=== PATIENT | female | born 1975 | race Caucasian/White ===

== ENCOUNTER 2023-08-02 01:19 | Inpatient (IN) | payer MEDICARE, SELFPAY ==
[2023-08-02] MEDS: traZODone HCL 50 MG TABLET PO (02:03)
[2023-08-02 02:05] VITALS: BP 136/87; PULSE 135; RESP 18; TEMP 36.6; O2SAT 95
[2023-08-02 02:28] VITALS: BMI 26.8
--- NOTE | 2023-08-02 05:45 | PC.NURSE ---
Pt is a 48 yo F with reported hx of Bipolar 2 and Schizoaffective disorder. Admitted from [facility] after attempting suicide by overdosing on the remainder of her daily medications; which included olanzapine, valproic acid, lisinopril, and hydroxyzine. Patient developed encephalopathy and was intubated, had intermittent extreme changes in B/P which have since regulated. Skin assessment shows multiple large bruises to bilateral upper arms, some bruising to upper legs, and indelible ink hopson to bilateral dorsal feet. Pt arrives to unit voluntarily, calm and cooperative, denies SI/HI/AVH at this time. States that she frequently feels paranoid that people are talking about her even when she tries to practice rationalization techniques. Believes her meds need to be adjusted before returning home where she lives with her .
[2023-08-02 08:00] VITALS: BP 146/81; PULSE 97; RESP 18; TEMP 36.8; O2SAT 100
[2023-08-02 08:41] LABS: Cholesterol 191 mg/dL (<200); HDL Cholesterol 29 mg/dL (>40); LDL Cholesterol Calculated 120 mg/dL (<100); Triglycerides 212 mg/dL (<150)
[2023-08-02 09:07] LABS: Estimated Average Glucose 126 mg/dL
--- NOTE | 2023-08-02 09:48 | HO.PSYADMNOT ---
HPI Date of Service: 08/02/23 Chief Complaint: Schizoaffective Disorder Sources of Information: patient interviewed, chart reviewed and crisis/core team assessment reviewed HPI Subjective Notes: Haq Warning and Conditional Voluntary Narrative: pt is a 47 yo female with hx of Bipolar disorder who presents following intentional overdose in suicide attempt requiring ICU admission at [facility] following aspiration pneumonia, now cleared, on PO antibiotics and transferred to [place] [address]. Pt reports she was doing overall okay, though still with depression, until about 2 weeks ago. She remained taking medications regularly and does not know why she entered into an intense depression. Patient has been attending [facility] however found herself sleeping all day afterwards, feeling like a burden to others, becoming hopeless, having no motivation, not attending to ADLs, and experiencing increasingly extreme despair. Patient did not hear actual auditory hallucinations but started having paranoid delusional thoughts that everybody knew that she had a mental illness, including strangers in the community, people driving by; patient would overhear other people talking and misinterpret it, such as hearing a man yelling, thinking that he was yelling at her. Patient said she would have suicidal thoughts but tried to distract herself by doing yoga; she does not know why she did not tell staff at [facility] or her ... But also says I wanted a way out.. Patient went into the basement while her was upstairs; she poured out all her pills into a bowl and started just consuming. Her came downstairs, realized what she would done and drove her to [facility] where she received charcoal and had to get intubated, resulting in aspiration pneumonia. Patient reports that Depakote has helped in the past and she wants to continue on it; she has not sure about the effectiveness of her other medication. Patient says her last manic episode was probably around March during which time she was hypomanic, irritable. Patient denies any alcohol or drug use; denies any history of trauma. Patient is glad that she is alive. Past Psychiatric History: Past psychiatric hospitalizations, Last hospitalization was this past March 2023 where she was restarted on Depakote and newly started on Zyprexa (2002, 2005, 2007, 2017) Hx of suicide attempt in 2018 Med trials: Latuda: Thinks it was helpful but caused akathisia Keyport: Helpful but started affecting kidneys and thyroid Vraylar: Wondering if she had auditory hallucinations on this Zyprexa, started this past 04/19/2023; not sure if it is helpful Seroquel started in 10/17/2022, causing vivid nightmares, sleepwalking Medical Evaluation Reviewed: Yes Concern for C diff; labs pending [facility] Medical History (Updated 08/02/23 @ 12:57 by Jonah Griggs MD) Bipolar I disorder with rapid cycling Hypertension Bipolar 1 disorder Schizoaffective disorder Family History: Maternal great grandmother: Schizophrenia Father: dementia Social History: lives at home with supportive of 21 years Graduated College with BA Substance History: denies Trauma History: denies Diagnostics Vital Signs (24Hr): Vital Signs - 24 hr 08/02/23 02:05 Temperature 97.8 F Pulse Rate 135 H Respiratory Rate 18 Blood Pressure 136/87 Pulse Oximetry 95 Oxygen Delivery Method Room Air BMI result Body Mass Index 26.8 Labs Labs: Laboratory Results - last 48 hr 08/02/23 08:06 Estimat Average Glucose 126 Hemoglobin A1c % 6.0 Triglycerides 212 H Cholesterol 191 LDL Cholesterol, Calc 120 H HDL Cholesterol 29 L Meds/Allergies Meds Home Medications ?Medication ?Instructions ?Recorded ?Confirmed ?Type acetaminophen 325 mg tablet 975 mg PO Q6H PRN Pain 08/02/23 08/02/23 History (Tylenol) amoxicillin 875 mg-potassium 1 tab PO BID 08/02/23 08/02/23 History clavulanate 125 mg tablet artificial tears solution eye drops 2 drp ophthalmic (eye) Q4-5H 08/02/23 08/02/23 History bisacodyl 10 mg rectal suppository 10 mg CA DAILY PRN Anxiety 08/02/23 08/02/23 History dextrose 40 % oral gel (Glucose 15 g PO Q20M PRN Hypoglycemia 08/02/23 08/02/23 History Gel) dextrose 40 % oral gel (Glucose 30 g PO Q20M PRN Hypoglycemia 08/02/23 08/02/23 History Gel) enoxaparin 40 mg/0.4 mL 40 mg subcut DAILY 08/02/23 08/02/23 History subcutaneous syringe (Lovenox) hydroxyzine pamoate 25 mg capsule 25 mg PO TID PRN Anxiety 08/02/23 08/02/23 History (Vistaril) lorazepam 0.5 mg tablet (Ativan) 0.5 mg PO BID PRN Anxiety 08/02/23 08/02/23 History melatonin 3 mg tablet 6 mg PO BEDTIME PRN Sleep 08/02/23 08/02/23 History sennosides 8.6 mg tablet (senna) 8.6 mg PO DAILY 08/02/23 08/02/23 History Allergies Allergies Allergy/AdvReac Type Severity Reaction Status Date / Time No Known Allergies Allergy Verified 08/02/23 00:26 Mental Status Exam Mental Status Exam Narrative: Pt is alert and oriented; behavior is cooperative, friendly and calm; patient is not in distress; dressed in casual attire, hair dyed red, with adequate hygiene; mood is described as depressed and affect congruent, downcast; eye contact appropriate; Speech is hoarse from intubation; otherwise normal rate, volume and prosody and not pressured; psychomotor retardation present; thought process is organized and goal directed; Thought content is on tx for depression; otherwise pertinent to relevant topics and without any delusional content, paranoid ideations or grandiosity; denies any SI/HI. There is no evidence of perceptual disturbance. Patients insight and judgment impaired, but improving. Assessment & Plan Assessment & Plan (1) Bipolar I disorder with rapid cycling: Status: Acute Code(s): F31.9 - Bipolar disorder, unspecified (2) Aspiration pneumonia: Status: Acute Code(s): J69.0 - Pneumonitis due to inhalation of food and vomit Plan pt is a 47 yo female with hx of Bipolar disorder who presents following intentional overdose in suicide attempt requiring ICU admission at [facility] following aspiration pneumonia, now cleared, on PO antibiotics and transferred to [place] [address]. Pt reports she was doing overall okay, though still with depression, until about 2 weeks ago. She remained taking medications regularly and does not know why she entered into an intense depression. Patient has been attending [facility] however found herself sleeping all day afterwards, feeling like a burden to others, becoming hopeless, having no motivation, not attending to ADLs, and experiencing increasingly extreme despair. Patient did not hear actual auditory hallucinations but started having paranoid delusional thoughts that everybody knew that she had a mental illness, including strangers in the community, people driving by; patient would overhear other people talking and misinterpret it, such as hearing a man yelling, thinking that he was yelling at her. Patient said she would have suicidal thoughts but tried to distract herself by doing yoga; she does not know why she did not tell staff at [facility] or her ... But also says I wanted a way out.. Patient went into the basement while her was upstairs; she poured out all her pills into a bowl and started just consuming. Her came downstairs, realized what she would done and drove her to [facility] where she received charcoal and had to get intubated, resulting in aspiration pneumonia. Patient reports that Depakote has helped in the past and she wants to continue on it; she has not sure about the effectiveness of her other medication. Patient says her last manic episode was probably around March during which time she was hypomanic, irritable. Patient denies any alcohol or drug use; denies any history of trauma. Patient is glad that she is alive. Formulation/clinical reasoning: Seems that Depakote and maybe Zyprexa (this past March 2023 she was restarted on Depakote and newly started on Zyprexa) seem to help prevent seda however do not seem to be treating her depression adequately. Patient has had several past medication trials that have not worked. Will consider Wellbutrin, retrial of Vraylar, or possibly Lamictal... ECT is an option; could also consider magnesium oxide -patient currently being treated for aspiration pneumonia on Augmentin; having diarrhea and C diff labs pending PLAN: CV q15min Restart Depakote ER 1000mg (at qhs since it makes pt tired) Continue Zyprexa 15mg qhs Continue Augmentin BID for total of 7 days; however if C diff positive will need to re-evaluate this antibiotic Patient educated on: diagnosis, medication risk/benefits and medical condition Informed Consent: understands Reason for continued inpatient stay Substantial Risk for: rapid decompensation Statement Statement: I have reviewed the history and physical and performed a pertinent examination on my patient. No changes have occurred unless specified. If the History and Physical was not performed prior to admission, the Hospitalist's service will be consulted for completing the admission physical. Time Spent With Patient Time: Total time managing care of this patient today ____ minutes.
--- NOTE | 2023-08-02 10:52 | P.CONHOSP_ITS ---
History of Present Illness Data of Consult Service Date: 08/02/23 Requesting physician: Jonah Griggs Primary Care Provider: Unknown Physician HPI Reason for consult: medical H&P 47-year-old female with a past medical history of hypertension, schizoaffective disorder, bipolar disorder?admitted to psychiatry with consult placed to hospitalist service for medical H&P. She was admitted to [facility] after arriving to the ED obtunded following an intentional overdose of zyprexa, depakote, asa, lisinopril, hydroxyzine in unclear amounts. Utox was positive for benzos only. Valproic acid level was significantly elevated at 120. Poison control was contacted and she recevied activated charcoal via ng tube, calcium gluc, and mag. She required emergent dialysis due to her valproic acid levels which did trend down and normalized on 07/28. She was also intubated in the ED for airway protection and was extubated on 07/29. Unfortuantely developed aspiration pneumonia with fevers and leukocytosis and was started on ctx on 07/26. She was transitioned to augmentin on day of discharge recommended for a 7 day course. She was sen by [employer] recommending dysphagia diet puree (NDD1) and nectar thick liquids. The patient currently denies dysphagia but remains hoarse. Apparently ate oatmeal and applesauce this morning. Was on regular diet. Will update. Her lisinopril was held during hospitalization with fluctuating bp following OD but was resumed prior to discharge. She is currently reporting multiple episodes of diarrhea and still reports charcoal in her stool. Denies tarry stool or BRBPR. Platelets 326 on discharge with stable H/H. Renal function and lytes wnl on discharge. Review of Systems Review of Systems: General: No fevers, malaise, unintentional weight loss HEENT: No blurred vision, diplopia. No sore throat, nasal congestion, rhinorrhea, sinus pain, ear pain. +hoarse voice Cardiovascular: No chest pain, palpitations, or leg edema Respiratory: No shortness of breath, wheezing, cough GI: +diarrhea. No abdominal pain, nausea, vomiting, constipation, melena, hematochezia : No dysuria, hematuria, increased urinary frequency, decreased urinary output MSK: No myalgia, back pain Neuro: No headaches, weakness, paresthesias Skin: No rashes or lesions PMFSH Medical History Hypertension Bipolar 1 disorder Schizoaffective disorder Social History Household Members: Spouse Housing: House Do you presently have visiting nurse or other home services: No Patient Tobacco Use Status: Never used Tobacco e-Cigarette/Vaping Use: Never Used Use of substances other than those prescribed or required for medical reasons: No Currently Displaying Signs/Symptoms of Drug Intoxication Withdrawal: No Any prior treatment program specific to substance use: No Have you been hit, kicked, punched, or otherwise hurt by someone within the past year? If so, by whom?: No Do you feel safe in your current relationship?: Yes Is there a partner from a previous relationship who is making you feel unsafe now?: No Are you made to feel afraid or neglected: No Advance Directives: No Advance Directives Information Provided: No Do you have a plan to hurt others: No Plan Recently lost weight without trying: No How much weight loss: Not applicable Eating poorly because of decreased appetite: No Nutrition screen score: 0 Nutrition Risks: No Nutritional Risk Patient : No Meds Allergies Allergy/AdvReac Type Severity Reaction Status Date / Time No Known Allergies Allergy Verified 08/02/23 00:26 Active Medications: Current Medications Acetaminophen (Acetaminophen 325 Mg Tablet) 650 mg PO Q6H PRN PRN Reason: Headache/Pain Mild Scale (1-3) Al Hydroxide/Mg Hydroxide (Magnesium Hydrox/Alum Hydrox 30 Ml Oral.Susp) 30 ml PO Q6H PRN PRN Reason: Heartburn/Nausea Hydroxyzine HCl (Hydroxyzine Hcl 25 Mg Tablet) 25 mg PO Q6H PRN PRN Reason: Anxiety Magnesium Hydroxide (Milk Of Magnesia 30 Ml Oral.Susp) 30 ml PO DAILY PRN PRN Reason: Constipation Nicotine (Nicotine 21 Mg Patch.Td24) 21 mg TRANSDERMA DAILY PRN PRN Reason: smoking cessation Nicotine Polacrilex (Nicotine Polacrilex 2 Mg Gum) 4 mg BUCCAL Q2H PRN PRN Reason: Nicotine Cravings Olanzapine (Olanzapine 5 Mg Tablet) 5 mg PO TID PRN PRN Reason: agitation Trazodone HCl (Trazodone Hcl 50 Mg Tablet) 50 mg PO BEDTIME MRX1 PRN PRN Reason: Insomnia Last Admin: 08/02/23 02:03 Dose: 50 mg Home Medications ?Medication ?Instructions ?Recorded ?Confirmed ?Last Taken ?Type acetaminophen 325 mg tablet 975 mg PO Q6H PRN Pain 08/02/23 08/02/23 Unknown History (Tylenol) amoxicillin 875 mg-potassium 1 tab PO BID 08/02/23 08/02/23 Unknown History clavulanate 125 mg tablet artificial tears solution eye drops 2 drp ophthalmic (eye) Q4-5H 08/02/23 08/02/23 Unknown History bisacodyl 10 mg rectal suppository 10 mg MS DAILY PRN Anxiety 08/02/23 08/02/23 Unknown History dextrose 40 % oral gel (Glucose 15 g PO Q20M PRN Hypoglycemia 08/02/23 08/02/23 Unknown History Gel) dextrose 40 % oral gel (Glucose 30 g PO Q20M PRN Hypoglycemia 08/02/23 08/02/23 Unknown History Gel) enoxaparin 40 mg/0.4 mL 40 mg subcut DAILY 08/02/23 08/02/23 Unknown History subcutaneous syringe (Lovenox) hydroxyzine pamoate 25 mg capsule 25 mg PO TID PRN Anxiety 08/02/23 08/02/23 Unknown History (Vistaril) lorazepam 0.5 mg tablet (Ativan) 0.5 mg PO BID PRN Anxiety 08/02/23 08/02/23 Unknown History melatonin 3 mg tablet 6 mg PO BEDTIME PRN Sleep 08/02/23 08/02/23 Unknown History sennosides 8.6 mg tablet (senna) 8.6 mg PO DAILY 08/02/23 08/02/23 Unknown History Physical Exam Vital Signs and Narrative: Vital Signs: Last Vital Signs Temp 98.2 F 08/02/23 08:00 Pulse 97 08/02/23 08:00 Resp 18 08/02/23 08:00 BP 146/81 H 08/02/23 08:00 Pulse Ox 100 08/02/23 08:00 O2 Del Method Room Air 08/02/23 08:00 BMI result Body Mass Index 26.8 Constitutional - Awake and Alert, No apparent distress Eyes - PERRLA, EOMI Cardiovascular - S1S2, RRR, No edema Respiratory - Normal lung expansion, Normal respiratory effort, No respiratory distress, CTA bilaterally Gastrointestinal - NT / ND; +BS; No rebound or guarding Extremities - no calf tenderness bilaterally, no swelling Musculoskeletal - Normal inspection, normal ROM Skin - Warm/Dry. ecchymosis noted to the bue Neurological - Alert & oriented x3, CN II-XII in tact, 5/5 strength BUE and BLE Psychological - Appropriate affect Results Labs Labs: Laboratory Results - last 24 hr 08/02/23 08:06 Estimat Average Glucose 126 Hemoglobin A1c % 6.0 Triglycerides 212 H Cholesterol 191 LDL Cholesterol, Calc 120 H HDL Cholesterol 29 L Assessment and Plan (1) Routine medical exam: Status: Acute (2) Diarrhea: Status: Acute (3) Intentional overdose: Status: Acute (4) Aspiration pneumonia: Status: Acute Plan 47-year-old female with a past medical history of hypertension, schizoaffective disorder, bipolar disorder?admitted to psychiatry with consult placed to hospitalist service for medical H&P. #Mood disorder -plan per psychiatry -labs reassuring on discharge. valproic acid level 28 on dc -see discharge summary from [facility] #Intentional overdose/Aspiration pneumonia -see hpi, see discharge summary -required ng tube and intubation with subsequent aspiration pneumonia. extubated 07/29 -completed ctx. continue augmentin 875mg bid x 14 doses -Continue [employer] recommendations from [facility]- NDD1 pureed diet with nectar thick diet. Would not advance without reconsulting [employer] #Diarrhea -possible r/t primarily liquid/advanced diet, however with recent abx use r/o cdiff and other pathogenic causes of diarrhea. CDiff pcr and gi panel ordered -if infectious ruled out, can give imodium #Hoarse voice/laryngitis -s/p intubation -warm salt water gargles -outpt follow up [facility] ent/pcp if no improvement #HTN -lisinopril 10-mg daily resumed prior to dc. Resume lisinopril 10mg daily Thank you for allowing me to participate in this consult. Signing off at this time. Please do not hesitate to call for further questions or for any acute medical issues
[2023-08-02 11:32] VITALS: BP 146/81
[2023-08-02] MEDS: lisinopriL 10 MG TABLET PO (11:32)
[2023-08-02] MEDS: Amoxicillin/Potassium Clav 875 MG TABLET PO ×2 (11:32→22:21)
[2023-08-02] MEDS: OLANZapine 5 MG TABLET PO (11:37)
[2023-08-02 16:18] LABS: CDiff Gene PCR POSITIVE (Negative)
[2023-08-02 17:15] LABS: CDiff Toxin Positive (Negative)
[2023-08-02 17:16] LABS: CDIFF Internal ctrl Dots and bkg OK (V)
--- NOTE | 2023-08-02 17:28 | PC.NURSE ---
Pt C.Diff +, results given by laboratory. Jonah Griggs MD made aware. Pt placed on precautions.
[2023-08-02 18:37] LABS: Hematocrit 39.4 % (37.0-47.0); Hemoglobin 13.3 g/dl (12.0-16.0); Mean Corpuscular HGB Conc 33.8 g/dl (31.0-35.0); Mean Corpuscular Hemoglobin 30.4 pg (27.0-33.0); Mean Corpuscular Volume 90.2 fL (80.0-98.0); Mean Platelet Volume 8.9 fL (9.4-12.3); Platelet Count 445 X10*3/uL (160-400); Red Blood Count 4.37 X10*6/uL (4.20-5.50); White Blood Count 11.7 X10*3/uL (4.8-10.8)
[2023-08-02 18:48] LABS: Anion Gap 21 (12-20); Blood Urea Nitrogen 15 mg/dL (9-16); Calcium 9.6 mg/dL (8.4-10.2); Carbon Dioxide 18 mmol/L (22-29); Chloride 107 mmol/L (96-108); Creatinine Clr Calc Pharmacy 90.3; Estimated Glomerular Filt Rate > 60; Glucose Random 140 mg/dL (60-115); Potassium 4.6 mmol/L (3.3-5.1); Sodium 141 mmol/L (135-145)
[2023-08-02] MEDS: vancomycin HCL 125 MG CAPSULE PO ×2 (18:50→22:22)
[2023-08-02 19:11] LABS: Band Neutrophils Percent 5 % (3-5); Lymphocytes Absolute Manual 2.3 X10*3/uL (1.2-4.9); Lymphocytes Percent Manual 20 % (20-40); Metamyelocytes Absolute 0.2 X10*3/uL; Metamyelocytes Percent 2 %; Monocytes Absolute Manual 1.1 X10*3/uL (0.1-1.2); Monocytes Percent Manual 9 % (2-11); Myelocytes Absolute 0.1 X10*/uL; Myelocytes Percent 1 %; Neutrophils Percent Manual 63 % (45-73)
[2023-08-02 19:12] LABS: Platelet Estimate NORMAL (NORMAL); Platelet Morphology Comment NORMAL; RBC Morphology NORMAL; Toxic Granulation PRESENT; Toxic Vacuolation PRESENT
[2023-08-02 20:00] VITALS: BP 140/90; PULSE 86; RESP 16; TEMP 36.6; O2SAT 95
[2023-08-02] MEDS: OLANZapine 7.5 MG TABLET 15 MG PO (22:21)
[2023-08-02] MEDS: Divalproex Sodium ER 500 MG TAB.ER.24H 1000 MG PO (22:22)
[2023-08-03] MEDS: Artificial Tears 15 ML DROPS 2 DROP EYE-BOTH (06:07)
[2023-08-03] MEDS: vancomycin HCL 125 MG CAPSULE PO ×3 (06:07→18:10)
[2023-08-03 08:00] VITALS: BP 177/78; PULSE 119; RESP 18; TEMP 36.5; O2SAT 96
[2023-08-03 08:51] VITALS: BP 177/78
[2023-08-03] MEDS: lisinopriL 10 MG TABLET PO (08:51)
--- NOTE | 2023-08-03 09:38 | P.PNPSI_ITS ---
Subjective Subjective Date of Service: 08/03/23 Reason For Visit: Schizoaffective Disorder Interim History: Met with patient; discussed with team Patient reports that she has feeling a little better. Not suicidal. Tolerated Depakote last night. Again discussed medication and patient agrees that Depakote and Zyprexa have prevented manic episodes and with Depakote on board she is open to starting Wellbutrin for help with depression. Patient struggling some with being isolated in her room due to C diff precautions but tolerating it. Asks when she thinks she will be able to discharge and agrees that safety plan needs to be better established since she did not reach out for help though help was available. Patient reports no loose stool at all and that she had a well-formed bowel movement today. Mental Status Exam Mental Status Exam Narrative: Pt is alert and oriented; behavior is cooperative, friendly and calm; patient is not in distress; dressed in casual attire, hair dyed red, with adequate hygiene; mood is described as okay and affect congruent, a little brighter; eye contact appropriate; Speech is hoarse from intubation; otherwise normal rate, volume and prosody and not pressured; psychomotor retardation present; thought process is organized and goal directed; Thought content is on tx for depression; otherwise pertinent to relevant topics and without any delusional content, paranoid ideations or grandiosity; denies any SI/HI. There is no evidence of perceptual disturbance. Patients insight and judgment impaired, but improving. Diagnostics Vital Signs (24Hr): Vital Signs - 24 hr 08/02/23 11:32 08/02/23 20:00 08/03/23 08:00 Temperature 98 F 97.7 F Pulse Rate 86 119 H Respiratory Rate 16 18 Blood Pressure 146/81 H 140/90 H 177/78 H Pulse Oximetry 95 96 Oxygen Delivery Method Room Air Room Air 08/03/23 08:51 Temperature Pulse Rate Respiratory Rate Blood Pressure 177/78 H Pulse Oximetry Oxygen Delivery Method BMI result Body Mass Index 26.8 Labs 08/02/23 18:21 08/02/23 18:21 Labs: Laboratory Results - last 48 hr 08/02/23 08/02/23 08/02/23 08:06 14:54 18:21 WBC 11.7 H RBC 4.37 Hgb 13.3 Hct 39.4 MCV 90.2 MCH 30.4 MCHC 33.8 RDW 12.0 Plt Count 445 H MPV 8.9 L Immature Gran % (Auto) Cancelled Neut % (Auto) Cancelled Lymph % (Auto) Cancelled [place] % (Auto) Cancelled Eos % (Auto) Cancelled Baso % (Auto) Cancelled Lymph # (Auto) Cancelled [place] # (Auto) Cancelled Eos # (Auto) Cancelled Baso # (Auto) Cancelled Abs Immat Gran (auto) Cancelled Absolute Neuts (auto) Cancelled Absolute Nucleated RBC 0.000 Nucleated RBC % (auto) 0.0 Neutrophils % (Manual) 63 Band Neutrophils % 5 Lymphocytes % (Manual) 20 Monocytes % (Manual) 9 Metamyelocytes % 2 Myelocytes % 1 Abs Neuts (Manual) 8.0 Lymphocytes # (Manual) 2.3 Monocytes # (Manual) 1.1 Metamyelocytes # 0.2 Myelocytes # 0.1 Toxic Granulation PRESENT Toxic Vacuolation PRESENT Platelet Estimate NORMAL Plt Morphology Comment NORMAL RBC Morphology NORMAL Sodium 141 Potassium 4.6 Chloride 107 Carbon Dioxide 18 L Anion Gap 21 H BUN 15 Creatinine 0.79 Estim Creat Clear Calc 90.3 Estimated GFR > 60 Random Glucose 140 H Estimat Average Glucose 126 Hemoglobin A1c % 6.0 Calcium 9.6 Triglycerides 212 H Cholesterol 191 LDL Cholesterol, Calc 120 H HDL Cholesterol 29 L C. difficile Tox B Gene POSITIVE A* C. difficile Toxin A&B Positive A* C. difficile Interpret SEE NOTE Medications Medications Current Medications Acetaminophen (Acetaminophen 325 Mg Tablet) 650 mg PO Q6H PRN PRN Reason: Headache/Pain Mild Scale (1-3) Al Hydroxide/Mg Hydroxide (Magnesium Hydrox/Alum Hydrox 30 Ml Oral.Susp) 30 ml PO Q6H PRN PRN Reason: Heartburn/Nausea Amoxicillin/Clavulanate Potassium (Amoxicillin/Potassium Clav 875 Mg Tablet) 875 mg PO Q12H [facility] Stop: 08/06/23 22:56 Last Admin: 08/02/23 22:21 Dose: 875 mg Artificial Tears (Artificial Tears 15 Ml Drops) 2 drop EYE-BOTH Q4H [facility] Last Admin: 08/03/23 06:07 Dose: 2 drop Bisacodyl (Bisacodyl 10 Mg Supp.Rect) 10 mg [place] DAILY PRN PRN Reason: Constipation Divalproex Sodium (Divalproex Sodium Er 500 Mg Tab.Er.24h) 1,000 mg PO BEDTIME [facility] Last Admin: 08/02/23 22:22 Dose: 1,000 mg Hydroxyzine HCl (Hydroxyzine Hcl 25 Mg Tablet) 25 mg PO Q6H PRN PRN Reason: Anxiety Lisinopril (Lisinopril 10 Mg Tablet) 10 mg PO DAILY [facility]; Protocol Last Admin: 08/03/23 08:51 Dose: 10 mg Magnesium Hydroxide (Milk Of Magnesia 30 Ml Oral.Susp) 30 ml PO DAILY PRN PRN Reason: Constipation Melatonin (Melatonin 3 Mg Tablet) 6 mg PO BEDTIME PRN PRN Reason: Sleep Nicotine (Nicotine 21 Mg Patch.Td24) 21 mg TRANSDERMA DAILY PRN PRN Reason: smoking cessation Nicotine Polacrilex (Nicotine Polacrilex 2 Mg Gum) 4 mg BUCCAL Q2H PRN PRN Reason: Nicotine Cravings Olanzapine (Olanzapine 5 Mg Tablet) 5 mg PO TID PRN PRN Reason: agitation Last Admin: 08/02/23 11:37 Dose: 5 mg Olanzapine (Olanzapine 7.5 Mg Tablet) 15 mg PO BEDTIME [facility] Last Admin: 08/02/23 22:21 Dose: 15 mg Senna (Sennosides 8.6 Mg Tablet) 8.6 mg PO DAILY [facility] Last Admin: 08/03/23 08:52 Dose: Not Given Trazodone HCl (Trazodone Hcl 50 Mg Tablet) 50 mg PO BEDTIME MRX1 PRN PRN Reason: Insomnia Last Admin: 08/02/23 02:03 Dose: 50 mg Vancomycin HCl (Vancomycin Hcl 125 Mg Capsule) 125 mg PO Q6H [facility] Stop: 08/12/23 12:01 Last Admin: 08/03/23 06:07 Dose: 125 mg Allergies Allergies Allergy/AdvReac Type Severity Reaction Status Date / Time No Known Allergies Allergy Verified 08/02/23 00:26 Assessment & Plan Assessment & Plan (1) Bipolar I disorder with rapid cycling: Status: Acute Code(s): F31.9 - Bipolar disorder, unspecified (2) Aspiration pneumonia: Status: Acute Code(s): J69.0 - Pneumonitis due to inhalation of food and vomit Plan HPI: pt is a 47 yo female with hx of Bipolar disorder who presents following intentional overdose in suicide attempt requiring ICU admission at [facility] following aspiration pneumonia, now cleared, on PO antibiotics and transferred to [place] [id number]. Pt reports she was doing overall okay, though still with depression, until about 2 weeks ago. She remained taking medications regularly and does not know why she entered into an intense depression. Patient has been attending [facility] however found herself sleeping all day afterwards, feeling like a burden to others, becoming hopeless, having no motivation, not attending to ADLs, and experiencing increasingly extreme despair. Patient did not hear actual auditory hallucinations but started having paranoid delusional thoughts that everybody knew that she had a mental illness, including strangers in the community, people driving by; patient would overhear other people talking and misinterpret it, such as hearing a man yelling, thinking that he was yelling at her. Patient said she would have suicidal thoughts but tried to distract herself by doing yoga; she does not know why she did not tell staff at [facility] or her ... But also says I wanted a way out.. Patient went into the basement while her was upstairs; she poured out all her pills into a bowl and started just consuming. Her came downstairs, realized what she would done and drove her to [facility] where she received charcoal and had to get intubated, resulting in aspiration pneumonia. Patient reports that Depakote has helped in the past and she wants to continue on it; she has not sure about the effectiveness of her other medication. Patient says her last manic episode was probably around March during which time she was hypomanic, irritable. Patient denies any alcohol or drug use; denies any history of trauma. Patient is glad that she is alive. Formulation/clinical reasoning: Seems that Depakote and maybe Zyprexa (this past March 2023 she was restarted on Depakote and newly started on Zyprexa) seem to help prevent seda however do not seem to be treating her depression adequately. Patient has had several past medication trials that have not worked. Will consider Wellbutrin, retrial of Vraylar, or possibly Lamictal... ECT is an option; could also consider magnesium oxide -patient currently being treated for aspiration pneumonia on Augmentin; having diarrhea and C diff labs pending Hospital course: 08/02 Patient reports that she has feeling a little better.? Not suicidal.? Tolerated Depakote last night.? Again discussed medication and patient agrees that Depakote and Zyprexa have prevented manic episodes and with Depakote on board she is open to starting Wellbutrin for help with depression.? Patient struggling some with being isolated in her room due to C diff precautions but tolerating it.? Asks when she thinks she will be able to discharge and agrees that safety plan needs to be better established since she did not reach out for help though help was available. -on both Depakote/Zyprexa patient's mood should be sufficiently stable to start low-dose Wellbutrin which has lowest risk of antidepressants of triggering seda. PLAN: CV q15min Start Wellbutrin XL 150 mg to address depression Continue Depakote ER 1000mg (at qhs since it makes pt tired) Continue Zyprexa 15mg qhs Continue Augmentin BID Continue vanco #Aspiration pneumonia -see hpi, see discharge summary -required ng tube and intubation with subsequent aspiration pneumonia. extubated 07/29 -completed ctx. continue augmentin 875mg bid x 14 doses -Continue POLICE DETENTION ATTENDANT recommendations from [facility]- NDD1 pureed diet with nectar thick diet. Would not advance without reconsulting POLICE DETENTION ATTENDANT #Cdiff vanco #HTN -lisinopril 10-mg daily resumed prior to dc. Resume lisinopril 10mg daily Patient educated on: diagnosis, medication risk/benefits, therapeutic strategies and medical condition Informed Consent: understands Reason for continued inpatient stay Substantial Risk for: rapid decompensation Time Spent With Patient Time: Total time managing care of this patient today ____ minutes.
[2023-08-03] MEDS: Amoxicillin/Potassium Clav 875 MG TABLET PO ×2 (11:05→22:59)
[2023-08-03 19:23] VITALS: BP 177/78; PULSE 119; RESP 22; TEMP 36.5; O2SAT 96
[2023-08-03] MEDS: Melatonin 3 MG TABLET 6 MG PO (21:13)
[2023-08-03] MEDS: traZODone HCL 50 MG TABLET PO (21:13)
[2023-08-03] MEDS: OLANZapine 7.5 MG TABLET 15 MG PO (21:13)
[2023-08-03] MEDS: Divalproex Sodium ER 500 MG TAB.ER.24H 1000 MG PO (21:14)
[2023-08-04] MEDS: vancomycin HCL 125 MG CAPSULE PO ×4 (00:24→17:32)
--- NOTE | 2023-08-04 08:35 | P.PNPSI_ITS ---
Subjective Subjective Date of Service: 08/04/23 Reason For Visit: Schizoaffective Disorder Interim History: Met with patient; discussed with team; Patient reports that she is feeling better overall. In fact her mood is much better she says she is thinking more positively, no self-deprecating thoughts. Patient feels that Wellbutrin does is good and agrees to leave current med regimen as it is for now. Discussed again history and patient reports that paranoia seems to be more of a recent occurrence over the past months and not present unless she has having a mood episode. Examined right arm induration which is resolve in; no cellulitis Discussed with Infectious Disease and patient able to come off one-to-one given diarrhea has resolved Patient still hypertensive Mental Status Exam Mental Status Exam Narrative: Pt is alert and oriented; behavior is cooperative, friendly and calm; patient is not in distress; dressed in casual attire, hair dyed red, with adequate hygiene; mood is described as good and affect congruent, brighter; eye contact appropriate; Speech is hoarse from intubation; otherwise normal rate, volume and prosody and not pressured; no psychomotor retardation present; thought process is goal directed; Thought content is on tx; otherwise pertinent to relevant topics and without any delusional content, paranoid ideations or grandiosity; denies any SI/HI. There is no evidence of perceptual disturbance. Patients insight and judgment fair Diagnostics Vital Signs (24Hr): Vital Signs - 24 hr 08/03/23 08:51 08/03/23 19:23 Temperature 97.7 F Pulse Rate 119 H Respiratory Rate 22 H Blood Pressure 177/78 H 177/78 H Pulse Oximetry 96 Oxygen Delivery Method Room Air BMI result Body Mass Index 26.8 Labs 08/02/23 18:21 08/02/23 18:21 Labs: Laboratory Results - last 48 hr 08/02/23 08/02/23 08/02/23 08:06 14:54 18:21 WBC 11.7 H RBC 4.37 Hgb 13.3 Hct 39.4 MCV 90.2 MCH 30.4 MCHC 33.8 RDW 12.0 Plt Count 445 H MPV 8.9 L Immature Gran % (Auto) Cancelled Neut % (Auto) Cancelled Lymph % (Auto) Cancelled [place] % (Auto) Cancelled Eos % (Auto) Cancelled Baso % (Auto) Cancelled Lymph # (Auto) Cancelled [place] # (Auto) Cancelled Eos # (Auto) Cancelled Baso # (Auto) Cancelled Abs Immat Gran (auto) Cancelled Absolute Neuts (auto) Cancelled Absolute Nucleated RBC 0.000 Nucleated RBC % (auto) 0.0 Neutrophils % (Manual) 63 Band Neutrophils % 5 Lymphocytes % (Manual) 20 Monocytes % (Manual) 9 Metamyelocytes % 2 Myelocytes % 1 Abs Neuts (Manual) 8.0 Lymphocytes # (Manual) 2.3 Monocytes # (Manual) 1.1 Metamyelocytes # 0.2 Myelocytes # 0.1 Toxic Granulation PRESENT Toxic Vacuolation PRESENT Platelet Estimate NORMAL Plt Morphology Comment NORMAL RBC Morphology NORMAL Sodium 141 Potassium 4.6 Chloride 107 Carbon Dioxide 18 L Anion Gap 21 H BUN 15 Creatinine 0.79 Estim Creat Clear Calc 90.3 Estimated GFR > 60 Random Glucose 140 H Estimat Average Glucose 126 Hemoglobin A1c % 6.0 Calcium 9.6 Triglycerides 212 H Cholesterol 191 LDL Cholesterol, Calc 120 H HDL Cholesterol 29 L C. difficile Tox B Gene POSITIVE A* C. difficile Toxin A&B Positive A* C. difficile Interpret SEE NOTE Medications Medications Current Medications Acetaminophen (Acetaminophen 325 Mg Tablet) 650 mg PO Q6H PRN PRN Reason: Headache/Pain Mild Scale (1-3) Al Hydroxide/Mg Hydroxide (Magnesium Hydrox/Alum Hydrox 30 Ml Oral.Susp) 30 ml PO Q6H PRN PRN Reason: Heartburn/Nausea Amoxicillin/Clavulanate Potassium (Amoxicillin/Potassium Clav 875 Mg Tablet) 875 mg PO Q12H [facility] Stop: 08/06/23 22:56 Last Admin: 08/03/23 22:59 Dose: 875 mg Artificial Tears (Artificial Tears 15 Ml Drops) 2 drop EYE-BOTH Q4H [facility] Last Admin: 08/04/23 05:22 Dose: Not Given Bisacodyl (Bisacodyl 10 Mg Supp.Rect) 10 mg SD DAILY PRN PRN Reason: Constipation Bupropion HCl (Bupropion Hcl Xl 150 Mg Tab.Er.24h) 150 mg PO DAILY [facility] Divalproex Sodium (Divalproex Sodium Er 500 Mg Tab.Er.24h) 1,000 mg PO BEDTIME [facility] Last Admin: 08/03/23 21:14 Dose: 1,000 mg Hydroxyzine HCl (Hydroxyzine Hcl 25 Mg Tablet) 25 mg PO Q6H PRN PRN Reason: Anxiety Lisinopril (Lisinopril 10 Mg Tablet) 10 mg PO DAILY [facility]; Protocol Last Admin: 08/03/23 08:51 Dose: 10 mg Magnesium Hydroxide (Milk Of Magnesia 30 Ml Oral.Susp) 30 ml PO DAILY PRN PRN Reason: Constipation Melatonin (Melatonin 3 Mg Tablet) 6 mg PO BEDTIME PRN PRN Reason: Sleep Last Admin: 08/03/23 21:13 Dose: 6 mg Nicotine (Nicotine 21 Mg Patch.Td24) 21 mg TRANSDERMA DAILY PRN PRN Reason: smoking cessation Nicotine Polacrilex (Nicotine Polacrilex 2 Mg Gum) 4 mg BUCCAL Q2H PRN PRN Reason: Nicotine Cravings Olanzapine (Olanzapine 5 Mg Tablet) 5 mg PO TID PRN PRN Reason: agitation Last Admin: 08/02/23 11:37 Dose: 5 mg Olanzapine (Olanzapine 7.5 Mg Tablet) 15 mg PO BEDTIME [facility] Last Admin: 08/03/23 21:13 Dose: 15 mg Senna (Sennosides 8.6 Mg Tablet) 8.6 mg PO DAILY [facility] Last Admin: 08/04/23 07:54 Dose: Not Given Trazodone HCl (Trazodone Hcl 50 Mg Tablet) 50 mg PO BEDTIME MRX1 PRN PRN Reason: Insomnia Last Admin: 08/03/23 21:13 Dose: 50 mg Vancomycin HCl (Vancomycin Hcl 125 Mg Capsule) 125 mg PO Q6H [facility] Stop: 08/12/23 12:01 Last Admin: 08/04/23 06:16 Dose: 125 mg Allergies Allergies Allergy/AdvReac Type Severity Reaction Status Date / Time No Known Allergies Allergy Verified 08/02/23 00:26 Assessment & Plan Assessment & Plan (1) Bipolar I disorder with rapid cycling: Status: Acute Code(s): F31.9 - Bipolar disorder, unspecified (2) Aspiration pneumonia: Status: Acute Code(s): J69.0 - Pneumonitis due to inhalation of food and vomit Plan HPI: pt is a 47 yo female with hx of Bipolar disorder who presents following intentional overdose in suicide attempt requiring ICU admission at [facility] following aspiration pneumonia, now cleared, on PO antibiotics and transferred to [place] [address]. Pt reports she was doing overall okay, though still with depression, until about 2 weeks ago. She remained taking medications regularly and does not know why she entered into an intense depression. Patient has been attending [facility] however found herself sleeping all day afterwards, feeling like a burden to others, becoming hopeless, having no motivation, not attending to ADLs, and experiencing increasingly extreme despair. Patient did not hear actual auditory hallucinations but started having paranoid delusional thoughts that everybody knew that she had a mental illness, including strangers in the community, people driving by; patient would overhear other people talking and misinterpret it, such as hearing a man yelling, thinking that he was yelling at her. Patient said she would have suicidal thoughts but tried to distract herself by doing yoga; she does not know why she did not tell staff at [facility] or her ... But also says I wanted a way out.. Patient went into the basement while her was upstairs; she poured out all her pills into a bowl and started just consuming. Her came downstairs, realized what she would done and drove her to [facility] where she received charcoal and had to get intubated, resulting in aspiration pneumonia. Patient reports that Depakote has helped in the past and she wants to continue on it; she has not sure about the effectiveness of her other medication. Patient says her last manic episode was probably around March during which time she was hypomanic, irritable. Patient denies any alcohol or drug use; denies any history of trauma. Patient is glad that she is alive. Formulation/clinical reasoning: Seems that Depakote and maybe Zyprexa (this past March 2023 she was restarted on Depakote and newly started on Zyprexa) seem to help prevent seda however do not seem to be treating her depression adequately. Patient has had several past medication trials that have not worked. Will consider Wellbutrin, retrial of Vraylar, or possibly Lamictal... ECT is an option; could also consider magnesium oxide -patient currently being treated for aspiration pneumonia on Augmentin; having diarrhea and C diff labs pending Hospital course: 08/02 Patient reports that she has feeling a little better.? Not suicidal.? Tolerated Depakote last night.? Again discussed medication and patient agrees that Depakote and Zyprexa have prevented manic episodes and with Depakote on board she is open to starting Wellbutrin for help with depression.? Patient struggling some with being isolated in her room due to C diff precautions but tolerating it.? Asks when she thinks she will be able to discharge and agrees that safety plan needs to be better established since she did not reach out for help though help was available. -on both Depakote/Zyprexa patient's mood should be sufficiently stable to start low-dose Wellbutrin which has lowest risk of antidepressants of triggering seda. 6/6 feeling better overall; thinking more positively, no self-deprecating thoughts. Wellbutrin working; no paranoia -remain on unit to make sure patient not triggered into seda; need to check labs; otherwise plan on discharge sometime early next week; patient wants to go to partial Examined right arm induration which is resolving; no cellulitis Discussed with Infectious Disease and patient able to come off one-to-one given diarrhea has resolved Patient still hypertensive; will continue to monitor -will order labs for Depakote PLAN: CV q15min Continue Wellbutrin XL 150 mg to address depression Continue Depakote ER 1000mg (at qhs since it makes pt tired) Continue Zyprexa 15mg qhs Continue Augmentin BID Continue vanco #Aspiration pneumonia -see hpi, see discharge summary -required ng tube and intubation with subsequent aspiration pneumonia. extubated 07/29 -completed ctx. continue augmentin 875mg bid x 14 doses -Continue RN REVIEW recommendations from [facility]- NDD1 pureed diet with nectar thick diet. Would not advance without reconsulting RN REVIEW #Cdiff vanco #HTN -lisinopril 10-mg daily resumed prior to dc. Resume lisinopril 10mg daily Patient educated on: diagnosis and medication risk/benefits Informed Consent: understands Reason for continued inpatient stay Substantial Risk for: stable for discharge and rapid decompensation Time Spent With Patient Time: Total time managing care of this patient today ____ minutes.
[2023-08-04 10:10] VITALS: BP 144/73
[2023-08-04] MEDS: buPROPion HCl XL 150 MG TAB.ER.24H PO (10:10)
[2023-08-04] MEDS: lisinopriL 10 MG TABLET PO (10:10)
[2023-08-04] MEDS: Amoxicillin/Potassium Clav 875 MG TABLET PO (10:11)
[2023-08-04 10:14] VITALS: BP 144/73; PULSE 114; RESP 20; TEMP 36.4; O2SAT 97
[2023-08-04 12:16] LABS: Campylobacter Not Detected (Not Detect.); E. coli EAEC Not Detected (Not Detect.); E. coli EPEC Not Detected (Not Detect.); E. coli ETEC Not Detected (Not Detect.); E. coli STEC Not Detected (Not Detect.); Plesiomonas shigelloides Not Detected (Not Detect.); Salmonella Not Detected (Not Detect.); Vibrio Not Detected (Not Detect.); Vibrio Cholerae Not Detected (Not Detect.); Yersinia enterocolitica Not Detected (Not Detect.)
[2023-08-04 12:17] LABS: Adenovirus F 40/41 Not Detected (Not Detect.); Astrovirus Not Detected (Not Detect.); Cryptosporidium Not Detected (Not Detect.); Cyclospora cayetanensis Not Detected (Not Detect.); Entamoeba histolytica Not Detected (Not Detect.); Giardia lamblia Not Detected (Not Detect.); Norovirus GI/GII Not Detected (Not Detect.); Rotavirus A Not Detected (Not Detect.); Sapovirus Not Detected (Not Detect.); Shigella sp./EIEC Not Detected (Not Detect.)
[2023-08-04] MEDS: hydrOXYzine HCL 25 MG TABLET PO (17:46)
[2023-08-04 20:00] VITALS: BP 135/91; PULSE 135; RESP 18; TEMP 36.6; O2SAT 98
[2023-08-04] MEDS: OLANZapine 7.5 MG TABLET 15 MG PO (21:27)
[2023-08-04] MEDS: Divalproex Sodium ER 500 MG TAB.ER.24H 1000 MG PO (21:27)
[2023-08-05] MEDS: vancomycin HCL 125 MG CAPSULE PO ×4 (01:49→19:01)
[2023-08-05] MEDS: Amoxicillin/Potassium Clav 875 MG TABLET PO ×2 (01:49→11:10)
[2023-08-05 08:00] VITALS: BP 132/79; PULSE 118; RESP 18; TEMP 36.4; O2SAT 98
[2023-08-05] MEDS: buPROPion HCl XL 150 MG TAB.ER.24H PO (08:27)
[2023-08-05] MEDS: Sennosides 8.6 MG TABLET PO (08:27)
[2023-08-05] MEDS: lisinopriL 10 MG TABLET PO (08:27)
--- NOTE | 2023-08-05 08:33 | HO.PSYCHPN ---
Subjective Subjective Date of Service: 08/05/23 Reason For Visit: Schizoaffective Disorder Interim History: Met with patient; discussed with team Patient reports her mood is good today. She is sleeping well. Patient had a good visit with her yesterday and he is coming in today. She is discussing with social work about aftercare and getting into a partial program, either returning to [facility] or doing the partial at [place]. Patient and Team agree this step-down will be important part of her treatment plan. Patient had lab work today which is not back yet. Mental Status Exam Mental Status Exam Narrative: Pt is alert and oriented; behavior is cooperative, friendly and calm; patient is not in distress; dressed in casual attire, hair dyed red, with adequate hygiene; mood is described as good and affect congruent, brighter; eye contact appropriate; Speech is hoarse from intubation; otherwise normal rate, volume and prosody and not pressured; no psychomotor retardation present; thought process is goal directed; Thought content is on tx; otherwise pertinent to relevant topics and without any delusional content, paranoid ideations or grandiosity; denies any SI/HI. There is no evidence of perceptual disturbance. Patients insight and judgment fair Diagnostics Vital Signs (24Hr): Vital Signs - 24 hr 08/04/23 10:10 08/04/23 10:14 08/04/23 20:00 Temperature 97.6 F 97.8 F Pulse Rate 114 H 135 H Respiratory Rate 20 18 Blood Pressure 144/73 H 144/73 H 135/91 H Pulse Oximetry 97 98 Oxygen Delivery Method Room Air BMI result Body Mass Index 26.8 Labs 08/02/23 18:21 08/02/23 18:21 Labs: Laboratory Results - last 48 hr 08/02/23 14:54 Stl C. cayetanensis PCR Not Detected Stool Rotavirus A PCR Not Detected Stl Adenov F 40/41 PCR Not Detected Stool Astrovirus (PCR) Not Detected Stool Campylobacter PCR Not Detected Stool Cryptosporidium PCR Not Detected Stl Sh Tox Pr E STEC PCR Not Detected Stool E coli O157 PCR Not applicable Stl Enterotoxigenic E PCR Not Detected Stool EPEC (PCR) Not Detected Stool EAEC (PCR) Not Detected Stl E. histolytica PCR Not Detected Stool Giardia Lamblia PCR Not Detected Stl P. shigelloides PCR Not Detected Stool Salmonella PCR Not Detected Stool Sapovirus (PCR) Not Detected Stl Shigella/EIEC PCR Not Detected St Y.enterocolitica PCR Not Detected Stool Vibrio (PCR) Not Detected Stl Vibrio cholerae PCR Not Detected Stl Norovirus GI/GII PCR Not Detected Medications Medications Current Medications Acetaminophen (Acetaminophen 325 Mg Tablet) 650 mg PO Q6H PRN PRN Reason: Headache/Pain Mild Scale (1-3) Al Hydroxide/Mg Hydroxide (Magnesium Hydrox/Alum Hydrox 30 Ml Oral.Susp) 30 ml PO Q6H PRN PRN Reason: Heartburn/Nausea Amoxicillin/Clavulanate Potassium (Amoxicillin/Potassium Clav 875 Mg Tablet) 875 mg PO Q12H [facility] Stop: 08/06/23 22:56 Last Admin: 08/05/23 01:49 Dose: 875 mg Artificial Tears (Artificial Tears 15 Ml Drops) 2 drop EYE-BOTH Q4H [facility] Last Admin: 08/05/23 08:27 Dose: Not Given Bisacodyl (Bisacodyl 10 Mg Supp.Rect) [address] DAILY PRN PRN Reason: Constipation Bupropion HCl (Bupropion Hcl Xl 150 Mg Tab.Er.24h) 150 mg PO DAILY [facility] Last Admin: 08/05/23 08:27 Dose: 150 mg Divalproex Sodium (Divalproex Sodium Er 500 Mg Tab.Er.24h) 1,000 mg PO BEDTIME [facility] Last Admin: 08/04/23 21:27 Dose: 1,000 mg Hydroxyzine HCl (Hydroxyzine Hcl 25 Mg Tablet) 25 mg PO Q6H PRN PRN Reason: Anxiety Last Admin: 08/04/23 17:46 Dose: 25 mg Lisinopril (Lisinopril 10 Mg Tablet) 10 mg PO DAILY [facility]; Protocol Last Admin: 08/05/23 08:27 Dose: 10 mg Magnesium Hydroxide (Milk Of Magnesia 30 Ml Oral.Susp) 30 ml PO DAILY PRN PRN Reason: Constipation Melatonin (Melatonin 3 Mg Tablet) 6 mg PO BEDTIME PRN PRN Reason: Sleep Last Admin: 08/03/23 21:13 Dose: 6 mg Nicotine (Nicotine 21 Mg Patch.Td24) 21 mg TRANSDERMA DAILY PRN PRN Reason: smoking cessation Nicotine Polacrilex (Nicotine Polacrilex 2 Mg Gum) 4 mg BUCCAL Q2H PRN PRN Reason: Nicotine Cravings Olanzapine (Olanzapine 5 Mg Tablet) 5 mg PO TID PRN PRN Reason: agitation Last Admin: 08/02/23 11:37 Dose: 5 mg Olanzapine (Olanzapine 7.5 Mg Tablet) 15 mg PO BEDTIME TEE Last Admin: 08/04/23 21:27 Dose: 15 mg Senna (Sennosides 8.6 Mg Tablet) 8.6 mg PO DAILY TEE Last Admin: 08/05/23 08:27 Dose: 8.6 mg Trazodone HCl (Trazodone Hcl 50 Mg Tablet) 50 mg PO BEDTIME MRX1 PRN PRN Reason: Insomnia Last Admin: 08/03/23 21:13 Dose: 50 mg Vancomycin HCl (Vancomycin Hcl 125 Mg Capsule) 125 mg PO Q6H TEE Stop: 08/12/23 12:01 Last Admin: 08/05/23 05:46 Dose: 125 mg Allergies Allergies Allergy/AdvReac Type Severity Reaction Status Date / Time No Known Allergies Allergy Verified 08/02/23 00:26 Assessment & Plan Assessment & Plan (1) Bipolar I disorder with rapid cycling: Status: Acute Code(s): F31.9 - Bipolar disorder, unspecified (2) Aspiration pneumonia: Status: Acute Code(s): J69.0 - Pneumonitis due to inhalation of food and vomit Plan HPI: pt is a 47 yo female with hx of Bipolar disorder who presents following intentional overdose in suicide attempt requiring ICU admission at [facility] following aspiration pneumonia, now cleared, on PO antibiotics and transferred to [place] [address]. Pt reports she was doing overall okay, though still with depression, until about 2 weeks ago. She remained taking medications regularly and does not know why she entered into an intense depression. Patient has been attending [facility] however found herself sleeping all day afterwards, feeling like a burden to others, becoming hopeless, having no motivation, not attending to ADLs, and experiencing increasingly extreme despair. Patient did not hear actual auditory hallucinations but started having paranoid delusional thoughts that everybody knew that she had a mental illness, including strangers in the community, people driving by; patient would overhear other people talking and misinterpret it, such as hearing a man yelling, thinking that he was yelling at her. Patient said she would have suicidal thoughts but tried to distract herself by doing yoga; she does not know why she did not tell staff at [facility] or her ... But also says I wanted a way out.. Patient went into the basement while her was upstairs; she poured out all her pills into a bowl and started just consuming. Her came downstairs, realized what she would done and drove her to [facility] where she received charcoal and had to get intubated, resulting in aspiration pneumonia. Patient reports that Depakote has helped in the past and she wants to continue on it; she has not sure about the effectiveness of her other medication. Patient says her last manic episode was probably around March during which time she was hypomanic, irritable. Patient denies any alcohol or drug use; denies any history of trauma. Patient is glad that she is alive. Formulation/clinical reasoning: Seems that Depakote and maybe Zyprexa (this past March 2023 she was restarted on Depakote and newly started on Zyprexa) seem to help prevent seda however do not seem to be treating her depression adequately. Patient has had several past medication trials that have not worked. Will consider Wellbutrin, retrial of Vraylar, or possibly Lamictal... ECT is an option; could also consider magnesium oxide -patient currently being treated for aspiration pneumonia on Augmentin; having diarrhea and C diff labs pending Hospital course: 6 Patient reports that she has feeling a little better.? Not suicidal.? Tolerated Depakote last night.? Again discussed medication and patient agrees that Depakote and Zyprexa have prevented manic episodes and with Depakote on board she is open to starting Wellbutrin for help with depression.? Patient struggling some with being isolated in her room due to C diff precautions but tolerating it.? Asks when she thinks she will be able to discharge and agrees that safety plan needs to be better established since she did not reach out for help though help was available. -on both Depakote/Zyprexa patient's mood should be sufficiently stable to start low-dose Wellbutrin which has lowest risk of antidepressants of triggering seda. 6/6 feeling better overall; thinking more positively, no self-deprecating thoughts. Wellbutrin working; no paranoia -remain on unit to make sure patient not triggered into seda; need to check labs; otherwise plan on discharge sometime early next week; patient wants to go to partial Examined right arm induration which is resolving; no cellulitis Discussed with Infectious Disease and patient able to come off one-to-one given diarrhea has resolved Patient still hypertensive; will continue to monitor -will order labs for Depakote 08/04 Patient reports her mood is good today. She is sleeping well. Patient had a good visit with her yesterday and he is coming in today. She is discussing with social work about aftercare and getting into a partial program, either returning to [place] or doing the partial at [place]. Patient and Team agree this step-down will be important part of her treatment plan. Patient had lab work today which is not back yet. -loose stool remains fully resolved -patient Remains hypertensive; will contact hospitalist EBONI for consult. PLAN: CV q15min Continue Wellbutrin XL 150 mg to address depression Continue Depakote ER 1000mg (at qhs since it makes pt tired) Continue Zyprexa 15mg qhs Continue Augmentin BID Continue vanco #Aspiration pneumonia -see hpi, see discharge summary -required ng tube and intubation with subsequent aspiration pneumonia. extubated 07/29 -completed ctx. continue augmentin 875mg bid x 14 doses -Continue [facility] recommendations from [facility]- NDD1 pureed diet with nectar thick diet. Would not advance without reconsulting WEED BURNER #Cdiff vanco #HTN -lisinopril 10-mg daily resumed prior to dc. Resume lisinopril 10mg daily Patient educated on: diagnosis, medication risk/benefits and medical condition Informed Consent: understands Reason for continued inpatient stay Substantial Risk for: stable for discharge and rapid decompensation Time Spent With Patient Time: Total time managing care of this patient today ____ minutes.
[2023-08-05 08:34] LABS: Ammonia 36 umol/L (13-55)
[2023-08-05 08:39] LABS: Valproate 39.3 mcg/mL (50.0-100.0)
[2023-08-05 08:42] LABS: Alanine Aminotransferase 34 U/L (0-31); Albumin Level 3.7 g/dL (3.5-5.0); Alkaline Phosphatase 70 U/L (39-117); Aspartate Amino Transferase 13 U/L (5-31); Bilirubin Direct 0.1 mg/dL (0.0-0.5); Bilirubin Total 0.3 mg/dL (0.0-1.0); Total Protein 6.8 g/dL (6.5-8.0)
[2023-08-05 19:15] VITALS: BP 131/85; PULSE 119; TEMP 36.4; O2SAT 98
[2023-08-05] MEDS: Divalproex Sodium ER 500 MG TAB.ER.24H 1000 MG PO (21:17)
[2023-08-05] MEDS: OLANZapine 7.5 MG TABLET 15 MG PO (21:18)
[2023-08-06] MEDS: Amoxicillin/Potassium Clav 875 MG TABLET PO ×2 (00:06→09:19)
[2023-08-06] MEDS: vancomycin HCL 125 MG CAPSULE PO ×4 (00:06→19:53)
--- NOTE | 2023-08-06 08:37 | P.PNPSI_ITS ---
Subjective Subjective Date of Service: 08/06/23 Reason For Visit: Schizoaffective Disorder Subjective Notes: Conditional Voluntary Interim History: Pt slept through the night. She denies depression, SI or HI. No VH/AH. No overt delusional content. No behavioral concerns. reports difficulty swallowing. Review of Systems Review of Systems General: No fevers, malaise, unintentional weight loss HEENT: No blurred vision, diplopia. No sore throat, nasal congestion, rhinorrhea, sinus pain, ear pain. +hoarse voice Cardiovascular: No chest pain, palpitations, or leg edema Respiratory: No shortness of breath, wheezing, cough GI: +diarrhea. No abdominal pain, nausea, vomiting, constipation, melena, hematochezia : No dysuria, hematuria, increased urinary frequency, decreased urinary output MSK: No myalgia, back pain Neuro: No headaches, weakness, paresthesias Skin: No rashes or lesions Mental Status Exam Mental Status Exam Narrative: Pt is alert and oriented; behavior is cooperative, friendly and calm; patient is not in distress; dressed in casual attire, hair dyed red, with adequate hygiene; mood is described as good and affect congruent, brighter; eye contact appropriate; Speech is hoarse from intubation; otherwise normal rate, volume and prosody and not pressured; no psychomotor retardation present; thought process is goal directed; Thought content is on tx; otherwise pertinent to relevant topics and without any delusional content, paranoid ideations or grandiosity; denies any SI/HI. There is no evidence of perceptual disturbance. Patients insight and judgment fair Diagnostics Vital Signs (24Hr): Vital Signs - 24 hr 08/05/23 19:15 Temperature 97.6 F Pulse Rate 119 H Blood Pressure 131/85 Pulse Oximetry 98 Oxygen Delivery Method Room Air BMI result Body Mass Index 26.8 Labs 08/02/23 18:21 08/02/23 18:21 Labs: Laboratory Results - last 48 hr 08/02/23 08/05/23 14:54 08:13 Total Bilirubin 0.3 Direct Bilirubin 0.1 AST 13 ALT 34 H Alkaline Phosphatase 70 Ammonia 36 Total Protein 6.8 Albumin 3.7 Stl C. cayetanensis PCR Not Detected Stool Rotavirus A PCR Not Detected Stl Adenov F 40/41 PCR Not Detected Stool Astrovirus (PCR) Not Detected Stool Campylobacter PCR Not Detected Stool Cryptosporidium PCR Not Detected Stl Sh Tox Pr E STEC PCR Not Detected Stool E coli O157 PCR Not applicable Stl Enterotoxigenic E PCR Not Detected Stool EPEC (PCR) Not Detected Stool EAEC (PCR) Not Detected Stl E. histolytica PCR Not Detected Stool Giardia Lamblia PCR Not Detected Stl P. shigelloides PCR Not Detected Stool Salmonella PCR Not Detected Stool Sapovirus (PCR) Not Detected Stl Shigella/EIEC PCR Not Detected St Y.enterocolitica PCR Not Detected Stool Vibrio (PCR) Not Detected Stl Vibrio cholerae PCR Not Detected Stl Norovirus GI/GII PCR Not Detected Valproic Acid 39.3 L Medications Medications Current Medications Acetaminophen (Acetaminophen 325 Mg Tablet) 650 mg PO Q6H PRN PRN Reason: Headache/Pain Mild Scale (1-3) Al Hydroxide/Mg Hydroxide (Magnesium Hydrox/Alum Hydrox 30 Ml Oral.Susp) 30 ml PO Q6H PRN PRN Reason: Heartburn/Nausea Amoxicillin/Clavulanate Potassium (Amoxicillin/Potassium Clav 875 Mg Tablet) 875 mg PO Q12H [facility] Stop: 08/06/23 22:56 Last Admin: 08/06/23 00:06 Dose: 875 mg Artificial Tears (Artificial Tears 15 Ml Drops) 2 drop EYE-BOTH Q4H [facility] Last Admin: 08/06/23 05:27 Dose: Not Given Bisacodyl (Bisacodyl 10 Mg Supp.Rect) 10 mg CA DAILY PRN PRN Reason: Constipation Bupropion HCl (Bupropion Hcl Xl 150 Mg Tab.Er.24h) 150 mg PO DAILY [facility] Last Admin: 08/05/23 08:27 Dose: 150 mg Divalproex Sodium (Divalproex Sodium Er 500 Mg Tab.Er.24h) 1,000 mg PO BEDTIME [facility] Last Admin: 08/05/23 21:17 Dose: 1,000 mg Hydroxyzine HCl (Hydroxyzine Hcl 25 Mg Tablet) 25 mg PO Q6H PRN PRN Reason: Anxiety Last Admin: 08/04/23 17:46 Dose: 25 mg Lisinopril (Lisinopril 10 Mg Tablet) 10 mg PO DAILY [facility]; Protocol Last Admin: 08/05/23 08:27 Dose: 10 mg Magnesium Hydroxide (Milk Of Magnesia 30 Ml Oral.Susp) 30 ml PO DAILY PRN PRN Reason: Constipation Melatonin (Melatonin 3 Mg Tablet) 6 mg PO BEDTIME PRN PRN Reason: Sleep Last Admin: 08/03/23 21:13 Dose: 6 mg Nicotine (Nicotine 21 Mg Patch.Td24) 21 mg TRANSDERMA DAILY PRN PRN Reason: smoking cessation Nicotine Polacrilex (Nicotine Polacrilex 2 Mg Gum) 4 mg BUCCAL Q2H PRN PRN Reason: Nicotine Cravings Olanzapine (Olanzapine 5 Mg Tablet) 5 mg PO TID PRN PRN Reason: agitation Last Admin: 08/02/23 11:37 Dose: 5 mg Olanzapine (Olanzapine 7.5 Mg Tablet) 15 mg PO BEDTIME ETE Last Admin: 08/05/23 21:18 Dose: 15 mg Senna (Sennosides 8.6 Mg Tablet) 8.6 mg PO DAILY TEE Last Admin: 08/05/23 08:27 Dose: 8.6 mg Trazodone HCl (Trazodone Hcl 50 Mg Tablet) 50 mg PO BEDTIME MRX1 PRN PRN Reason: Insomnia Last Admin: 08/03/23 21:13 Dose: 50 mg Vancomycin HCl (Vancomycin Hcl 125 Mg Capsule) 125 mg PO Q6H [facility]EE Stop: 08/12/23 12:01 Last Admin: 08/06/23 06:14 Dose: 125 mg Allergies Allergies Allergy/AdvReac Type Severity Reaction Status Date / Time No Known Allergies Allergy Verified 08/02/23 00:26 Assessment & Plan Assessment & Plan (1) Bipolar I disorder with rapid cycling: Status: Acute Code(s): F31.9 - Bipolar disorder, unspecified (2) Aspiration pneumonia: Status: Acute Code(s): J69.0 - Pneumonitis due to inhalation of food and vomit Plan HPI: pt is a 47 yo female with hx of Bipolar disorder who presents following intentional overdose in suicide attempt requiring ICU admission at [facility] following aspiration pneumonia, now cleared, on PO antibiotics and transferred to [place] [address]. Pt reports she was doing overall okay, though still with depression, until about 2 weeks ago. She remained taking medications regularly and does not know why she entered into an intense depression. Patient has been attending [facility] however found herself sleeping all day afterwards, feeling like a burden to others, becoming hopeless, having no motivation, not attending to ADLs, and experiencing increasingly extreme despair. Patient did not hear actual auditory hallucinations but started having paranoid delusional thoughts that everybody knew that she had a mental illness, including strangers in the community, people driving by; patient would overhear other people talking and misinterpret it, such as hearing a man yelling, thinking that he was yelling at her. Patient said she would have suicidal thoughts but tried to distract herself by doing yoga; she does not know why she did not tell staff at partial or her ... But also says I wanted a way out.. Patient went into the basement while her was upstairs; she poured out all her pills into a bowl and started just consuming. Her came downstairs, realized what she would done and drove her to [facility] where she received charcoal and had to get intubated, resulting in aspiration pneumonia. Patient reports that Depakote has helped in the past and she wants to continue on it; she has not sure about the effectiveness of her other medication. Patient says her last manic episode was probably around March during which time she was hypomanic, irritable. Patient denies any alcohol or drug use; denies any history of trauma. Patient is glad that she is alive. Formulation/clinical reasoning: Seems that Depakote and maybe Zyprexa (this past March 2023 she was restarted on Depakote and newly started on Zyprexa) seem to help prevent seda however do not seem to be treating her depression adequately. Patient has had several past medication trials that have not worked. Will consider Wellbutrin, retrial of Vraylar, or possibly Lamictal... ECT is an option; could also consider magnesium oxide -patient currently being treated for aspiration pneumonia on Augmentin; having diarrhea and C diff labs pending Hospital course: 08/02 Patient reports that she has feeling a little better.? Not suicidal.? Tolerated Depakote last night.? Again discussed medication and patient agrees that Depakote and Zyprexa have prevented manic episodes and with Depakote on board she is open to starting Wellbutrin for help with depression.? Patient struggling some with being isolated in her room due to C diff precautions but tolerating it.? Asks when she thinks she will be able to discharge and agrees that safety plan needs to be better established since she did not reach out for help though help was available. -on both Depakote/Zyprexa patient's mood should be sufficiently stable to start low-dose Wellbutrin which has lowest risk of antidepressants of triggering seda. 6/ feeling better overall; thinking more positively, no self-deprecating thoughts. Wellbutrin working; no paranoia -remain on unit to make sure patient not triggered into seda; need to check labs; otherwise plan on discharge sometime early next week; patient wants to go to partial Examined right arm induration which is resolving; no cellulitis Discussed with Infectious Disease and patient able to come off one-to-one given diarrhea has resolved Patient still hypertensive; will continue to monitor -will order labs for Depakote 08/04 Patient reports her mood is good today. She is sleeping well. Patient had a good visit with her yesterday and he is coming in today. She is discussing with social work about aftercare and getting into a partial program, either returning to [facility] or doing the partial at [place]. Patient and Team agree this step-down will be important part of her treatment plan. Patient had lab work today which is not back yet. -loose stool remains fully resolved -patient Remains hypertensive; will contact hospitalist EBONI for consult. 08/05 continue tx. PLAN: CV q15min Continue Wellbutrin XL 150 mg to address depression Continue Depakote ER 1000mg (at qhs since it makes pt tired) Continue Zyprexa 15mg qhs Continue Augmentin BID Continue vanco #Aspiration pneumonia -see hpi, see discharge summary -required ng tube and intubation with subsequent aspiration pneumonia. extubated 07/29 -completed ctx. continue augmentin 875mg bid x 14 doses -Continue [employer] recommendations from [facility]- NDD1 pureed diet with nectar thick diet. Would not advance without reconsulting [employer]IST #Cdiff vanco #HTN -lisinopril 10-mg daily resumed prior to dc. Resume lisinopril 10mg daily Reason for continued inpatient stay Substantial Risk for: inability to function Time Spent With Patient Time: Total time managing care of this patient today ____ minutes.
[2023-08-06 09:10] VITALS: BP 118/61; PULSE 106; RESP 16; TEMP 36.6; O2SAT 97
[2023-08-06 09:18] VITALS: BP 118/61
[2023-08-06] MEDS: buPROPion HCl XL 150 MG TAB.ER.24H PO (09:18)
[2023-08-06] MEDS: lisinopriL 10 MG TABLET PO (09:18)
[2023-08-06] MEDS: Sennosides 8.6 MG TABLET PO (09:19)
[2023-08-06 20:00] VITALS: BP 121/76; PULSE 119; RESP 16; TEMP 36.9; O2SAT 98
[2023-08-06] MEDS: OLANZapine 7.5 MG TABLET 15 MG PO (20:51)
[2023-08-06] MEDS: Divalproex Sodium ER 500 MG TAB.ER.24H 1000 MG PO (20:51)
[2023-08-07] MEDS: Amoxicillin/Potassium Clav 875 MG TABLET PO (01:15)
[2023-08-07] MEDS: vancomycin HCL 125 MG CAPSULE PO ×5 (01:15→23:50)
[2023-08-07 08:52] VITALS: BP 136/83; PULSE 109; RESP 16; TEMP 36.8; O2SAT 99
[2023-08-07 09:20] VITALS: BP 132/74; PULSE 102; RESP 16; TEMP 36.9; O2SAT 99
[2023-08-07 09:44] VITALS: BP 132/74
[2023-08-07] MEDS: Sennosides 8.6 MG TABLET PO (09:44)
[2023-08-07] MEDS: buPROPion HCl XL 150 MG TAB.ER.24H PO (09:44)
[2023-08-07] MEDS: lisinopriL 10 MG TABLET PO (09:44)
--- NOTE | 2023-08-07 19:24 | P.PNPSI_ITS ---
Subjective Subjective Date of Service: 08/07/23 Reason For Visit: Schizoaffective Disorder Interim History: Pt slept through the night. She denies depression, SI or HI. No VH/AH. No overt delusional content. No behavioral concerns. reports difficulty swallowing. Review of Systems Review of Systems General: No fevers, malaise, unintentional weight loss HEENT: No blurred vision, diplopia. No sore throat, nasal congestion, rhinorrhea, sinus pain, ear pain. +hoarse voice Cardiovascular: No chest pain, palpitations, or leg edema Respiratory: No shortness of breath, wheezing, cough GI: +diarrhea. No abdominal pain, nausea, vomiting, constipation, melena, hematochezia : No dysuria, hematuria, increased urinary frequency, decreased urinary output MSK: No myalgia, back pain Neuro: No headaches, weakness, paresthesias Skin: No rashes or lesions Mental Status Exam Mental Status Exam Narrative: Pt is alert and oriented; behavior is cooperative, friendly and calm; patient is not in distress; dressed in casual attire, hair dyed red, with adequate hygiene; mood is described as good and affect congruent, brighter; eye contact appropriate; Speech is hoarse from intubation; otherwise normal rate, volume and prosody and not pressured; no psychomotor retardation present; thought process is goal directed; Thought content is on tx; otherwise pertinent to relevant topics and without any delusional content, paranoid ideations or grandiosity; denies any SI/HI. There is no evidence of perceptual disturbance. Patients insight and judgment fair Diagnostics Vital Signs (24Hr): Vital Signs - 24 hr 08/06/23 20:00 08/07/23 09:20 08/07/23 09:44 Temperature 98.5 F 98.5 F Pulse Rate 119 H 102 H Respiratory Rate 16 16 Blood Pressure 121/76 132/74 132/74 Pulse Oximetry 98 99 Oxygen Delivery Method Room Air Room Air BMI result Body Mass Index 26.8 Labs 08/02/23 18:21 08/02/23 18:21 Medications Medications Current Medications Acetaminophen (Acetaminophen 325 Mg Tablet) 650 mg PO Q6H PRN PRN Reason: Headache/Pain Mild Scale (1-3) Al Hydroxide/Mg Hydroxide (Magnesium Hydrox/Alum Hydrox 30 Ml Oral.Susp) 30 ml PO Q6H PRN PRN Reason: Heartburn/Nausea Artificial Tears (Artificial Tears 15 Ml Drops) 2 drop EYE-BOTH Q4H [facility] Last Admin: 08/07/23 17:16 Dose: Not Given Bisacodyl (Bisacodyl 10 Mg Supp.Rect) 10 mg [place] DAILY PRN PRN Reason: Constipation Bupropion HCl (Bupropion Hcl Xl 150 Mg Tab.Er.24h) 150 mg PO DAILY [facility] Last Admin: 08/07/23 09:44 Dose: 150 mg Divalproex Sodium (Divalproex Sodium Er 500 Mg Tab.Er.24h) 1,000 mg PO BEDTIME TEE Last Admin: 08/06/23 20:51 Dose: 1,000 mg Hydroxyzine HCl (Hydroxyzine Hcl 25 Mg Tablet) 25 mg PO Q6H PRN PRN Reason: Anxiety Last Admin: 08/04/23 17:46 Dose: 25 mg Lisinopril (Lisinopril 10 Mg Tablet) 10 mg PO DAILY [facility]; Protocol Last Admin: 08/07/23 09:44 Dose: 10 mg Magnesium Hydroxide (Milk Of Magnesia 30 Ml Oral.Susp) 30 ml PO DAILY PRN PRN Reason: Constipation Melatonin (Melatonin 3 Mg Tablet) 6 mg PO BEDTIME PRN PRN Reason: Sleep Last Admin: 08/03/23 21:13 Dose: 6 mg Nicotine (Nicotine 21 Mg Patch.Td24) 21 mg TRANSDERMA DAILY PRN PRN Reason: smoking cessation Nicotine Polacrilex (Nicotine Polacrilex 2 Mg Gum) 4 mg BUCCAL Q2H PRN PRN Reason: Nicotine Cravings Olanzapine (Olanzapine 5 Mg Tablet) 5 mg PO TID PRN PRN Reason: agitation Last Admin: 08/02/23 11:37 Dose: 5 mg Olanzapine (Olanzapine 7.5 Mg Tablet) 15 mg PO BEDTIME [facility] Last Admin: 08/06/23 20:51 Dose: 15 mg Senna (Sennosides 8.6 Mg Tablet) 8.6 mg PO DAILY [facility] Last Admin: 08/07/23 09:44 Dose: 8.6 mg Trazodone HCl (Trazodone Hcl 50 Mg Tablet) 50 mg PO BEDTIME MRX1 PRN PRN Reason: Insomnia Last Admin: 08/03/23 21:13 Dose: 50 mg Vancomycin HCl (Vancomycin Hcl 125 Mg Capsule) 125 mg PO Q6H TEE Stop: 08/12/23 12:01 Last Admin: 08/07/23 17:15 Dose: 125 mg Allergies Allergies Allergy/AdvReac Type Severity Reaction Status Date / Time No Known Allergies Allergy Verified 08/02/23 00:26 Assessment & Plan Assessment & Plan (1) Bipolar I disorder with rapid cycling: Status: Acute Code(s): F31.9 - Bipolar disorder, unspecified (2) Aspiration pneumonia: Status: Acute Code(s): J69.0 - Pneumonitis due to inhalation of food and vomit Plan HPI: pt is a 47 yo female with hx of Bipolar disorder who presents following intentional overdose in suicide attempt requiring ICU admission at [facility] following aspiration pneumonia, now cleared, on PO antibiotics and transferred to [place] [id number]. Pt reports she was doing overall okay, though still with depression, until about 2 weeks ago. She remained taking medications regularly and does not know why she entered into an intense depression. Patient has been attending [facility] however found herself sleeping all day afterwards, feeling like a burden to others, becoming hopeless, having no motivation, not attending to ADLs, and experiencing increasingly extreme despair. Patient did not hear actual auditory hallucinations but started having paranoid delusional thoughts that everybody knew that she had a mental illness, including strangers in the community, people driving by; patient would overhear other people talking and misinterpret it, such as hearing a man yelling, thinking that he was yelling at her. Patient said she would have suicidal thoughts but tried to distract herself by doing yoga; she does not know why she did not tell staff at [facility] or her ... But also says I wanted a way out.. Patient went into the basement while her was upstairs; she poured out all her pills into a bowl and started just consuming. Her came downstairs, realized what she would done and drove her to [facility] where she received charcoal and had to get intubated, resulting in aspiration pneumonia. Patient reports that Depakote has helped in the past and she wants to continue on it; she has not sure about the effectiveness of her other medication. Patient says her last manic episode was probably around March during which time she was hypomanic, irritable. Patient denies any alcohol or drug use; denies any history of trauma. Patient is glad that she is alive. Formulation/clinical reasoning: Seems that Depakote and maybe Zyprexa (this past March 2023 she was restarted on Depakote and newly started on Zyprexa) seem to help prevent seda however do not seem to be treating her depression adequately. Patient has had several past medication trials that have not worked. Will consider Wellbutrin, retrial of Vraylar, or possibly Lamictal... ECT is an option; could also consider magnesium oxide -patient currently being treated for aspiration pneumonia on Augmentin; having diarrhea and C diff labs pending Hospital course: 08/02 Patient reports that she has feeling a little better.? Not suicidal.? Tolerated Depakote last night.? Again discussed medication and patient agrees that Depakote and Zyprexa have prevented manic episodes and with Depakote on board she is open to starting Wellbutrin for help with depression.? Patient struggling some with being isolated in her room due to C diff precautions but tolerating it.? Asks when she thinks she will be able to discharge and agrees that safety plan needs to be better established since she did not reach out for help though help was available. -on both Depakote/Zyprexa patient's mood should be sufficiently stable to start low-dose Wellbutrin which has lowest risk of antidepressants of triggering seda. 08/03 feeling better overall; thinking more positively, no self-deprecating thoughts. Wellbutrin working; no paranoia -remain on unit to make sure patient not triggered into seda; need to check labs; otherwise plan on discharge sometime early next week; patient wants to go to partial Examined right arm induration which is resolving; no cellulitis Discussed with Infectious Disease and patient able to come off one-to-one given diarrhea has resolved Patient still hypertensive; will continue to monitor -will order labs for Depakote 08/04 Patient reports her mood is good today. She is sleeping well. Patient had a good visit with her yesterday and he is coming in today. She is discussing with social work about aftercare and getting into a partial program, either returning to [place] or doing the partial at [place]. Patient and Team agree this step-down will be important part of her treatment plan. Patient had lab work today which is not back yet. -loose stool remains fully resolved -patient Remains hypertensive; will contact hospitalist EBONI for consult. 08/06 continue tx. PLAN: CV q15min Continue Wellbutrin XL 150 mg to address depression Continue Depakote ER 1000mg (at qhs since it makes pt tired) Continue Zyprexa 15mg qhs Continue Augmentin BID Continue vanco #Aspiration pneumonia -see hpi, see discharge summary -required ng tube and intubation with subsequent aspiration pneumonia. extubated 07/29 -completed ctx. continue augmentin 875mg bid x 14 doses -Continue CLERK [employer] LEVEL recommendations from [facility]- NDD1 pureed diet with nectar thick diet. Would not advance without reconsulting CLERK [employer]EVEL #Cdiff vanco #HTN -lisinopril 10-mg daily resumed prior to dc. Resume lisinopril 10mg daily Reason for continued inpatient stay Substantial Risk for: stable for discharge Time Spent With Patient Time: Total time managing care of this patient today ____ minutes.
[2023-08-07] MEDS: OLANZapine 7.5 MG TABLET 15 MG PO (21:15)
[2023-08-07] MEDS: Divalproex Sodium ER 500 MG TAB.ER.24H 1000 MG PO (21:15)
[2023-08-07] MEDS: traZODone HCL 50 MG TABLET PO (21:21)
[2023-08-08] MEDS: vancomycin HCL 125 MG CAPSULE PO ×4 (05:45→23:39)
[2023-08-08 09:25] VITALS: BP 139/73; PULSE 120; RESP 21; TEMP 36.8; O2SAT 99
[2023-08-08 09:30] VITALS: BP 139/73
[2023-08-08] MEDS: buPROPion HCl XL 150 MG TAB.ER.24H PO (09:30)
[2023-08-08] MEDS: lisinopriL 10 MG TABLET PO (09:30)
[2023-08-08] MEDS: Sennosides 8.6 MG TABLET PO (09:30)
[2023-08-08] MEDS: hydrOXYzine HCL 25 MG TABLET PO ×2 (09:31→19:13)
--- NOTE | 2023-08-08 15:02 | HO.PSYCHPN ---
Subjective Subjective Date of Service: 08/08/23 Reason For Visit: Schizoaffective Disorder Interim History: Pt reports she is planning discharge for 08/10/23. She reports strange dreams yet otherwise no current SE. Believes regime to be helpful. Ruthann Ko completed a bedside swallow eval for new onset pharygeal dysphagia and dysphonia post extubation, coughing on thin liquids. Modified diet-regular solids and nectar thick liquids ordered. Recommendations include instrumental exam for further eval of pharyngeal dysphagia and ENT referral due to voice changes. Medication Compliance: Yes Side effects from medications: No Attending Groups: Intermittent Review of Systems swallow eval results as noted Medical Review of Systems: unchanged Review of Systems Review of Systems swallow eval as noted Mental Status Exam Mental Status Exam Patient Appearance: Appropriate Patient Orientation: Person, Place, Time and Situation Level of Consciousness: Alert Patient Behavior: Talkative and Good Eye Contact Mood Description: Appropriate and Anxious Affect Description: Appropriate and Anxious Patient Cognition Impaired: No Ability to Follow Directions: Good Speech Pattern: Spontaneous Speech Memory Description: Intact Hallucinations: None Delusions: Not Present Thought Process: Intact Thought Content: positive for Intact Depressive Symptoms: Increased Anxiety Judgement: Good Diagnostics Vital Signs (24Hr): Vital Signs - 24 hr 08/08/23 09:25 08/08/23 09:30 Temperature 98.2 F Pulse Rate 120 H Respiratory Rate 21 H Blood Pressure 139/73 139/73 Pulse Oximetry 99 Oxygen Delivery Method Room Air BMI result Body Mass Index 26.8 Labs 08/02/23 18:21 08/02/23 18:21 Medications Medications Current Medications Acetaminophen (Acetaminophen 325 Mg Tablet) 650 mg PO Q6H PRN PRN Reason: Headache/Pain Mild Scale (1-3) Al Hydroxide/Mg Hydroxide (Magnesium Hydrox/Alum Hydrox 30 Ml Oral.Susp) 30 ml PO Q6H PRN PRN Reason: Heartburn/Nausea Artificial Tears (Artificial Tears 15 Ml Drops) 2 drop EYE-BOTH Q4H [facility] Last Admin: 08/08/23 11:49 Dose: Not Given Bisacodyl (Bisacodyl 10 Mg Supp.Rect) 10 mg [place] DAILY PRN PRN Reason: Constipation Bupropion HCl (Bupropion Hcl Xl 150 Mg Tab.Er.24h) 150 mg PO DAILY [facility] Last Admin: 08/08/23 09:30 Dose: 150 mg Divalproex Sodium (Divalproex Sodium Er 500 Mg Tab.Er.24h) 1,000 mg PO BEDTIME TEE Last Admin: 08/07/23 21:15 Dose: 1,000 mg Hydroxyzine HCl (Hydroxyzine Hcl 25 Mg Tablet) 25 mg PO Q6H PRN PRN Reason: Anxiety Last Admin: 08/08/23 09:31 Dose: 25 mg Lisinopril (Lisinopril 10 Mg Tablet) 10 mg PO DAILY TEE; Protocol Last Admin: 08/08/23 09:30 Dose: 10 mg Magnesium Hydroxide (Milk Of Magnesia 30 Ml Oral.Susp) 30 ml PO DAILY PRN PRN Reason: Constipation Melatonin (Melatonin 3 Mg Tablet) 6 mg PO BEDTIME PRN PRN Reason: Sleep Last Admin: 08/03/23 21:13 Dose: 6 mg Nicotine (Nicotine 21 Mg Patch.Td24) 21 mg TRANSDERMA DAILY PRN PRN Reason: smoking cessation Nicotine Polacrilex (Nicotine Polacrilex 2 Mg Gum) 4 mg BUCCAL Q2H PRN PRN Reason: Nicotine Cravings Olanzapine (Olanzapine 5 Mg Tablet) 5 mg PO TID PRN PRN Reason: agitation Last Admin: 08/02/23 11:37 Dose: 5 mg Olanzapine (Olanzapine 7.5 Mg Tablet) 15 mg PO BEDTIME TEE Last Admin: 08/07/23 21:15 Dose: 15 mg Senna (Sennosides 8.6 Mg Tablet) 8.6 mg PO DAILY TEE Last Admin: 08/08/23 09:30 Dose: 8.6 mg Trazodone HCl (Trazodone Hcl 50 Mg Tablet) 50 mg PO BEDTIME MRX1 PRN PRN Reason: Insomnia Last Admin: 08/07/23 21:21 Dose: 50 mg Vancomycin HCl (Vancomycin Hcl 125 Mg Capsule) 125 mg PO Q6H TEE Stop: 08/12/23 12:01 Last Admin: 08/08/23 13:27 Dose: 125 mg Allergies Allergies Allergy/AdvReac Type Severity Reaction Status Date / Time No Known Allergies Allergy Verified 08/02/23 00:26 Assessment & Plan Assessment & Plan (1) Bipolar I disorder with rapid cycling: Status: Acute Code(s): F31.9 - Bipolar disorder, unspecified (2) Aspiration pneumonia: Status: Acute Code(s): J69.0 - Pneumonitis due to inhalation of food and vomit Plan HPI: pt is a 47 yo female with hx of Bipolar disorder who presents following intentional overdose in suicide attempt requiring ICU admission at [facility] following aspiration pneumonia, now cleared, on PO antibiotics and transferred to [place] [id number]. Pt reports she was doing overall okay, though still with depression, until about 2 weeks ago. She remained taking medications regularly and does not know why she entered into an intense depression. Patient has been attending [facility] however found herself sleeping all day afterwards, feeling like a burden to others, becoming hopeless, having no motivation, not attending to ADLs, and experiencing increasingly extreme despair. Patient did not hear actual auditory hallucinations but started having paranoid delusional thoughts that everybody knew that she had a mental illness, including strangers in the community, people driving by; patient would overhear other people talking and misinterpret it, such as hearing a man yelling, thinking that he was yelling at her. Patient said she would have suicidal thoughts but tried to distract herself by doing yoga; she does not know why she did not tell staff at [facility] or her ... But also says I wanted a way out.. Patient went into the basement while her was upstairs; she poured out all her pills into a bowl and started just consuming. Her came downstairs, realized what she would done and drove her to [facility] where she received charcoal and had to get intubated, resulting in aspiration pneumonia. Patient reports that Depakote has helped in the past and she wants to continue on it; she has not sure about the effectiveness of her other medication. Patient says her last manic episode was probably around March during which time she was hypomanic, irritable. Patient denies any alcohol or drug use; denies any history of trauma. Patient is glad that she is alive. Formulation/clinical reasoning: Seems that Depakote and maybe Zyprexa (this past March 2023 she was restarted on Depakote and newly started on Zyprexa) seem to help prevent seda however do not seem to be treating her depression adequately. Patient has had several past medication trials that have not worked. Will consider Wellbutrin, retrial of Vraylar, or possibly Lamictal... ECT is an option; could also consider magnesium oxide -patient currently being treated for aspiration pneumonia on Augmentin; having diarrhea and C diff labs pending Hospital course: 08/02 Patient reports that she has feeling a little better.? Not suicidal.? Tolerated Depakote last night.? Again discussed medication and patient agrees that Depakote and Zyprexa have prevented manic episodes and with Depakote on board she is open to starting Wellbutrin for help with depression.? Patient struggling some with being isolated in her room due to C diff precautions but tolerating it.? Asks when she thinks she will be able to discharge and agrees that safety plan needs to be better established since she did not reach out for help though help was available. -on both Depakote/Zyprexa patient's mood should be sufficiently stable to start low-dose Wellbutrin which has lowest risk of antidepressants of triggering seda. 08/03 feeling better overall; thinking more positively, no self-deprecating thoughts. Wellbutrin working; no paranoia -remain on unit to make sure patient not triggered into seda; need to check labs; otherwise plan on discharge sometime early next week; patient wants to go to partial Examined right arm induration which is resolving; no cellulitis Discussed with Infectious Disease and patient able to come off one-to-one given diarrhea has resolved Patient still hypertensive; will continue to monitor -will order labs for Depakote 08/04 Patient reports her mood is good today. She is sleeping well. Patient had a good visit with her yesterday and he is coming in today. She is discussing with social work about aftercare and getting into a partial program, either returning to [place] or doing the partial at [place]. Patient and Team agree this step-down will be important part of her treatment plan. Patient had lab work today which is not back yet. -loose stool remains fully resolved -patient Remains hypertensive; will contact hospitalist EBONI for consult. 08/06 continue tx. 08/07 continue tx. PLAN: CV q15min Continue Wellbutrin XL 150 mg to address depression Continue Depakote ER 1000mg (at qhs since it makes pt tired) Continue Zyprexa 15mg qhs Continue Augmentin BID Continue vanco #Aspiration pneumonia -see hpi, see discharge summary -required ng tube and intubation with subsequent aspiration pneumonia. extubated 07/29 -completed ctx. continue augmentin 875mg bid x 14 doses -Continue PROFESSOR OF FOOD BIOCHEMISTRY recommendations from [facility]- NDD1 pureed diet with nectar thick diet. Would not advance without reconsulting PROFESSOR OF FOOD BIOCHEMISTRY #Niruff romina #HTN -lisinopril 10-mg daily resumed prior to dc. Resume lisinopril 10mg daily Informed Consent: understands Reason for continued inpatient stay Substantial Risk for: rapid decompensation and med/psych decompensation Time Spent With Patient Time: Total time managing care of this patient today ____ minutes.
--- NOTE | 2023-08-08 17:56 | MHC.SL.SWA ---
Speech Pathologist Impression: Risk of aspiration, pharyngeal phase dysphagia, dysphonia Risk of Aspiration Due to: History of Pneumonia Hx of Recent Extubation Weak Voice Dysphasia Diet Status: UPGRADE solids from puree to REGULAR, liquids from honey thick to NECTAR THICK Liquid Consistency and Strategies for Safe Swallow: Liquid Intake Recommendation: [place] Thick Solid Food Consistency: Dietary Recommendations: Regular Additional Modifications to Solid Foods: Patient with new onset pharyngeal dysphagia and dysphonia post-extubation, coughing on thin liquids. Recommend start on REGULAR texture diet and NECTAR THICK liquids, pills WHOLE or CRUSHED in PUREE per patient's preference. Oral Medication Intake: Crushed with Puree Please contact the pharmacy regarding appropriate crushable or liquid drug formulations that are available whenever modified delivery is recommended. Compensatory Strategies and Precautions to be Taken for Safe Swallow: Sitting Upright (90 deg) No Straw Small Bites and Sips Rate of Ingestion Change Supervision While Eating and Drinking for Safe Swallow: Intermittent Supervision Swallowing Recommended Treatments: Compens. Strategy Educat. Recommendation for Speech: Outpatient Speech Therapy Inpatient Speech Therapy Modified Barium Swallow Study - Inpatient Modified Barium Swallow Study - Outpatient Comment: Patient is recommended a modified diet (regular solids and nectar thick liquids). SENIOR MEDICAL WRITER will continue to follow during her inpatient stay. She would benefit from instrumental exam to further evaluate her pharyngeal dysphagia at some point, to be done inpatient or outpatient depending on discharge planning and radiology availability. Frequency/Duration: M-F PRN Date Range for Service Req: Timeline to reassess: PRN Software Tools Developer Clinican/Clinical Fellow: No Supervisory Statement: I have reviewed and agree with the student/clinical fellow's documentation: N/A Speech Language Pathologist: Ruthann Ko M.A., [facility]-SENIOR MEDICAL WRITER
[2023-08-08 20:00] VITALS: BP 131/77; PULSE 110; RESP 18; TEMP 36.6; O2SAT 99
[2023-08-08] MEDS: OLANZapine 7.5 MG TABLET 15 MG PO (20:01)
[2023-08-08] MEDS: Divalproex Sodium ER 500 MG TAB.ER.24H 1000 MG PO (20:02)
[2023-08-08] MEDS: traZODone HCL 50 MG TABLET PO (20:02)
[2023-08-08] MEDS: Melatonin 3 MG TABLET 6 MG PO (21:03)
[2023-08-09] MEDS: vancomycin HCL 125 MG CAPSULE PO ×3 (05:43→17:28)
[2023-08-09 07:52] VITALS: BP 134/71; PULSE 118; RESP 16; TEMP 36.4; O2SAT 98
[2023-08-09] MEDS: Sennosides 8.6 MG TABLET PO (08:46)
[2023-08-09] MEDS: lisinopriL 10 MG TABLET PO (08:46)
[2023-08-09] MEDS: buPROPion HCl XL 150 MG TAB.ER.24H PO (08:46)
--- NOTE | 2023-08-09 09:37 | HO.PSYCHPN ---
Subjective Subjective Date of Service: 08/09/23 Reason For Visit: Schizoaffective Disorder Interim History: met with patient; discussed with team Reports she is doing well. No depression, no negative self talk, hopeful and optimistic. Patient says she is tolerating medications well and plans to continue them. She has discussed things with her and feels that she will be able to reach out for help if she again feels unsafe and has reviewed safety plan with social work. Patient will be attending step-down and returning [facility]. -no loose stool Mental Status Exam Mental Status Exam Narrative: Pt is alert and oriented; behavior is cooperative, friendly and calm; patient is not in distress; dressed in casual attire, hair dyed red, with adequate hygiene; mood is described as good and affect congruent, bright, calm; eye contact appropriate; Speech is hoarse from intubation; otherwise normal rate, volume and prosody and not pressured; no psychomotor retardation present; thought process is goal directed; Thought content is on tx; otherwise pertinent to relevant topics and without any delusional content, paranoid ideations or grandiosity; denies any SI/HI. There is no evidence of perceptual disturbance. Patients insight and judgment fair Diagnostics Vital Signs (24Hr): Vital Signs - 24 hr 08/08/23 20:00 08/09/23 07:52 Temperature 97.8 F 97.5 F Pulse Rate 110 H 118 H Respiratory Rate 18 16 Blood Pressure 131/77 134/71 Pulse Oximetry 99 98 Oxygen Delivery Method Room Air Room Air BMI result Body Mass Index 26.8 Labs 08/02/23 18:21 08/02/23 18:21 Medications Medications Current Medications Acetaminophen (Acetaminophen 325 Mg Tablet) 650 mg PO Q6H PRN PRN Reason: Headache/Pain Mild Scale (1-3) Al Hydroxide/Mg Hydroxide (Magnesium Hydrox/Alum Hydrox 30 Ml Oral.Susp) 30 ml PO Q6H PRN PRN Reason: Heartburn/Nausea Artificial Tears (Artificial Tears 15 Ml Drops) 2 drop EYE-BOTH Q4H [facility] Last Admin: 08/09/23 08:43 Dose: Not Given Bisacodyl (Bisacodyl 10 Mg Supp.Rect) 10 mg [place] DAILY PRN PRN Reason: Constipation Bupropion HCl (Bupropion Hcl Xl 150 Mg Tab.Er.24h) 150 mg PO DAILY [facility] Last Admin: 08/09/23 08:46 Dose: 150 mg Divalproex Sodium (Divalproex Sodium Er 500 Mg Tab.Er.24h) 1,000 mg PO BEDTIME TEE Last Admin: 08/08/23 20:02 Dose: 1,000 mg Hydroxyzine HCl (Hydroxyzine Hcl 25 Mg Tablet) 25 mg PO Q6H PRN PRN Reason: Anxiety Last Admin: 08/08/23 19:13 Dose: 25 mg Lisinopril (Lisinopril 10 Mg Tablet) 10 mg PO DAILY TEE; Protocol Last Admin: 08/09/23 08:46 Dose: 10 mg Magnesium Hydroxide (Milk Of Magnesia 30 Ml Oral.Susp) 30 ml PO DAILY PRN PRN Reason: Constipation Melatonin (Melatonin 3 Mg Tablet) 6 mg PO BEDTIME PRN PRN Reason: Sleep Last Admin: 08/08/23 21:03 Dose: 6 mg Nicotine (Nicotine 21 Mg Patch.Td24) 21 mg TRANSDERMA DAILY PRN PRN Reason: smoking cessation Nicotine Polacrilex (Nicotine Polacrilex 2 Mg Gum) 4 mg BUCCAL Q2H PRN PRN Reason: Nicotine Cravings Olanzapine (Olanzapine 5 Mg Tablet) 5 mg PO TID PRN PRN Reason: agitation Last Admin: 08/02/23 11:37 Dose: 5 mg Olanzapine (Olanzapine 7.5 Mg Tablet) 15 mg PO BEDTIME TEE Last Admin: 08/08/23 20:01 Dose: 15 mg Senna (Sennosides 8.6 Mg Tablet) 8.6 mg PO DAILY TEE Last Admin: 08/09/23 08:46 Dose: 8.6 mg Trazodone HCl (Trazodone Hcl 50 Mg Tablet) 50 mg PO BEDTIME MRX1 PRN PRN Reason: Insomnia Last Admin: 08/08/23 20:02 Dose: 50 mg Vancomycin HCl (Vancomycin Hcl 125 Mg Capsule) 125 mg PO Q6H TEE Stop: 08/12/23 12:01 Last Admin: 08/09/23 05:43 Dose: 125 mg Allergies Allergies Allergy/AdvReac Type Severity Reaction Status Date / Time No Known Allergies Allergy Verified 08/02/23 00:26 Assessment & Plan Assessment & Plan (1) Bipolar I disorder with rapid cycling: Status: Acute Code(s): F31.9 - Bipolar disorder, unspecified (2) Aspiration pneumonia: Status: Acute Code(s): J69.0 - Pneumonitis due to inhalation of food and vomit Plan HPI: pt is a 47 yo female with hx of Bipolar disorder who presents following intentional overdose in suicide attempt requiring ICU admission at [facility] following aspiration pneumonia, now cleared, on PO antibiotics and transferred to [place] [id number]. Pt reports she was doing overall okay, though still with depression, until about 2 weeks ago. She remained taking medications regularly and does not know why she entered into an intense depression. Patient has been attending [facility] however found herself sleeping all day afterwards, feeling like a burden to others, becoming hopeless, having no motivation, not attending to ADLs, and experiencing increasingly extreme despair. Patient did not hear actual auditory hallucinations but started having paranoid delusional thoughts that everybody knew that she had a mental illness, including strangers in the community, people driving by; patient would overhear other people talking and misinterpret it, such as hearing a man yelling, thinking that he was yelling at her. Patient said she would have suicidal thoughts but tried to distract herself by doing yoga; she does not know why she did not tell staff at [facility] or her ... But also says I wanted a way out.. Patient went into the basement while her was upstairs; she poured out all her pills into a bowl and started just consuming. Her came downstairs, realized what she would done and drove her to [facility] where she received charcoal and had to get intubated, resulting in aspiration pneumonia. Patient reports that Depakote has helped in the past and she wants to continue on it; she has not sure about the effectiveness of her other medication. Patient says her last manic episode was probably around March during which time she was hypomanic, irritable. Patient denies any alcohol or drug use; denies any history of trauma. Patient is glad that she is alive. Formulation/clinical reasoning: Seems that Depakote and maybe Zyprexa (this past March 2023 she was restarted on Depakote and newly started on Zyprexa) seem to help prevent seda however do not seem to be treating her depression adequately. Patient has had several past medication trials that have not worked. Will consider Wellbutrin, retrial of Vraylar, or possibly Lamictal... ECT is an option; could also consider magnesium oxide -patient currently being treated for aspiration pneumonia on Augmentin; having diarrhea and C diff labs pending Hospital course: 08/02 Patient reports that she has feeling a little better.? Not suicidal.? Tolerated Depakote last night.? Again discussed medication and patient agrees that Depakote and Zyprexa have prevented manic episodes and with Depakote on board she is open to starting Wellbutrin for help with depression.? Patient struggling some with being isolated in her room due to C diff precautions but tolerating it.? Asks when she thinks she will be able to discharge and agrees that safety plan needs to be better established since she did not reach out for help though help was available. -on both Depakote/Zyprexa patient's mood should be sufficiently stable to start low-dose Wellbutrin which has lowest risk of antidepressants of triggering seda. 6 feeling better overall; thinking more positively, no self-deprecating thoughts. Wellbutrin working; no paranoia -remain on unit to make sure patient not triggered into seda; need to check labs; otherwise plan on discharge sometime early next week; patient wants to go to partial Examined right arm induration which is resolving; no cellulitis Discussed with Infectious Disease and patient able to come off one-to-one given diarrhea has resolved Patient still hypertensive; will continue to monitor -will order labs for Depakote 08/04 Patient reports her mood is good today. She is sleeping well. Patient had a good visit with her yesterday and he is coming in today. She is discussing with social work about aftercare and getting into a partial program, either returning to [facility] or doing the partial at [facility]. Patient and Team agree this step-down will be important part of her treatment plan. Patient had lab work today which is not back yet. -loose stool remains fully resolved -patient Remains hypertensive; will contact hospitalist EBONI for consult. 08/06 continue tx. 08/07 continue tx. 08/08 remains stable, good mood, depression fully resolved, tolerating medications well; sleeping and eating well. Feeling ready for discharge and going to a step-down. Safety plan reviewed. -Depakote level subtherapeutic however patient has remained stable and was on this dose in the past without manic episodes; will continue with this dose for now. Other labs WNL Patient is not in imminent risk for harm to self or others and request for discharge honored. PLAN: CV q15min Continue Wellbutrin XL 150 mg to address depression Continue Depakote ER 1000mg (at qhs since it makes pt tired) Continue Zyprexa 15mg qhs Continue Augmentin BID Continue vanco #Aspiration pneumonia -see hpi, see discharge summary -required ng tube and intubation with subsequent aspiration pneumonia. extubated 07/29 -completed ctx. continue augmentin 875mg bid x 14 doses -Continue [employer] recommendations from [facility]- NDD1 pureed diet with nectar thick diet. Would not advance without reconsulting [employer]ENT #Cdiff vanco #HTN -lisinopril 10-mg daily resumed prior to dc. Resume lisinopril 10mg daily Patient educated on: diagnosis, medication risk/benefits, therapeutic strategies and medical condition Informed Consent: understands Reason for continued inpatient stay Substantial Risk for: stable for discharge Time Spent With Patient Time: Total time managing care of this patient today ____ minutes.
[2023-08-09] MEDS: hydrOXYzine HCL 25 MG TABLET PO ×2 (11:23→21:00)
--- NOTE | 2023-08-09 14:47 | MHC.SL.DTX ---
Dysphagia Diet modifications: Last documented Solid diet consistencies: Regular Last documented Liquid consistency: [place] Thick Changes made to current diet?: Yes Liquid Consistency and Strategies: Liquid Intake Recommendation: [place] Thick Compensatory Strategies for Safe Swallow: Unrestricted Compensatory Strategies for Safe Swallow(b): Sitting Upright (90 deg) Small Bites and Sips Alternate Liquids/Solids Rate of Ingestion Change Solid Food Consistency: Dietary Recommendations: Regular Additional Modifications to Solids: Patient with new onset pharyngeal dysphagia and dysphonia post-extubation, coughing on thin liquids. Recommend start on REGULAR texture diet and NECTAR THICK liquids, pills WHOLE or CRUSHED in PUREE per patient's preference. Oral Medication Intake: Crushed with Puree Strategies and Precautions to be Taken for Safe Swallow: Sitting Upright (90 deg) Small Bites and Sips Alternate Liquids/Solids Rate of Ingestion Change Supervision While Eating and/Drinking: Intermittent Supervision Swallowing Recommended Treatments: Compens. Strategy Educat. Vocal Cord Adduction Exer Recommendation for Speech: Outpatient Speech Therapy Inpatient Speech Therapy Modified Barium Swallow Study - Inpatient Modified Barium Swallow Study - Outpatient Comment: Patient with new onset pharyngeal dysphagia and dysphonia post-extubation, coughing on thin liquids. Patient is recommended a modified diet (regular solids and nectar thick liquids). FLOW NURSE will continue to follow during her inpatient stay. She would benefit from instrumental exam to further evaluate her pharyngeal dysphagia at some point, to be done inpatient or outpatient depending on discharge planning and radiology availability. Frequency/Duration: Date Range for Service Req: Timeline to reassess: Additional Comments: Treatment: Pt is taken aside into a community room. She has questions about buying thickener and has resolved that she will do so on the way home tomorrow. FLOW NURSE recommends a Gel Thickener which would most likely only be found online. She demonstrated cough on 25% of trials of Thin Liquid water prior to terminating treatment. FLOW NURSE continues to recommend NECTAR-THICK LIQUIDS, but her prognosis for recovery is good given the etiology of her impairment (intubation/extubation). Assessment: Price Analyst Clinican/Clinical Fellow: No Supervisory Statement: I have reviewed and agree with the student/clinical fellow's documentation: N/A Speech Language Pathologist: Daquan Noguera M.A., [facility]-FLOW NURSE
--- NOTE | 2023-08-09 18:34 | PM.PSYDC ---
DS: Providers Provider Date of Service: 08/10/23 Date of admission: 08/02/23 01:19 Date of discharge: 08/10/23 Primary care physician: Unknown Physician Attending physician on admission: Jonah Griggs Consults: 08/02/23 00:26 Consult to Hospitalist Routine Comment: Consulting Provider: Hospitalist Reason For Exam: admission physical 08/02/23 16:42 Consult to Hospitalist Routine Comment: aspiration pneumonia Consulting Provider: Hospitalist Reason For Exam: Cdiff+ change abx? was on Vanco IM, now augmentin DS: Diagnosis Discharge Diagnosis (1) Bipolar I disorder with rapid cycling: Status: Acute (2) Aspiration pneumonia: Status: Acute DS: Medications Discharge Medications Home Medications: Home Medications ?Medication ?Instructions ?Recorded ?Confirmed acetaminophen 325 mg tablet 975 mg PO Q6H PRN Pain 08/02/23 08/02/23 (Tylenol) lorazepam 0.5 mg tablet (Ativan) 0.5 mg PO BID PRN Anxiety 08/02/23 08/02/23 Previous Rx's ?Medication ?Instructions ?Recorded bupropion HCl 150 mg 24 hr tablet, 150 mg PO DAILY 30 days #30 tabs 08/09/23 extended release divalproex 500 mg tablet,extended 1,000 mg (2 x 500 mg) PO BEDTIME 08/09/23 release 24 hr 30 days #60 tabs hydroxyzine pamoate 25 mg capsule 25 mg PO TID PRN Anxiety 30 days 08/09/23 (Vistaril) #60 caps lisinopril 10 mg tablet 10 mg PO DAILY 30 days #30 tabs 08/09/23 melatonin 3 mg tablet 6 mg (2 x 3 mg) PO BEDTIME PRN 08/09/23 Sleep 30 days #60 tabs olanzapine 15 mg tablet 15 mg PO BEDTIME 30 days #30 tabs 08/09/23 peg [id number] 1 2 drp ophthalmic (eye) Q4H PRN dry 08/09/23 %-0.2 %-0.2 % eye drops eyes 30 days #15 mL (Artificial Tears ([id number])) sennosides 8.6 mg tablet (senna) 8.6 mg PO DAILY 30 days #30 tabs 08/09/23 trazodone 50 mg tablet 50 mg PO BEDTIME PRN Insomnia 30 08/09/23 days #30 tabs vancomycin 125 mg capsule 125 mg PO Q6H 2 days #9 caps 08/09/23 Mental Status Exam Mental Status Exam Narrative: Pt is alert and oriented; behavior is cooperative, friendly and calm; patient is not in distress; dressed in casual attire, hair dyed red, with adequate hygiene; mood is described as good and affect congruent, bright, calm; eye contact appropriate; Speech is hoarse from intubation; otherwise normal rate, volume and prosody and not pressured; no psychomotor retardation present; thought process is goal directed; Thought content is on tx; otherwise pertinent to relevant topics and without any delusional content, paranoid ideations or grandiosity; denies any SI/HI. There is no evidence of perceptual disturbance. Patients insight and judgment fair Data Data Completed and Pending Completed studies during hospitalization [Text1]: 08/02/23 08/02/23 08/05/23 14:54 18:21 08:13 WBC 11.7 H RBC 4.37 Hgb 13.3 Hct 39.4 MCV 90.2 MCH 30.4 MCHC 33.8 RDW 12.0 Plt Count 445 H MPV 8.9 L Immature Gran % (Auto) Cancelled Neut % (Auto) Cancelled Lymph % (Auto) Cancelled Grant % (Auto) Cancelled Eos % (Auto) Cancelled Baso % (Auto) Cancelled Lymph # (Auto) Cancelled Grant # (Auto) Cancelled Eos # (Auto) Cancelled Baso # (Auto) Cancelled Abs Immat Gran (auto) Cancelled Absolute Neuts (auto) Cancelled Absolute Nucleated RBC 0.000 Nucleated RBC % (auto) 0.0 Neutrophils % (Manual) 63 Band Neutrophils % 5 Lymphocytes % (Manual) 20 Monocytes % (Manual) 9 Metamyelocytes % 2 Myelocytes % 1 Abs Neuts (Manual) 8.0 Lymphocytes # (Manual) 2.3 Monocytes # (Manual) 1.1 Metamyelocytes # 0.2 Myelocytes # 0.1 Toxic Granulation PRESENT Toxic Vacuolation PRESENT Platelet Estimate NORMAL Plt Morphology Comment NORMAL RBC Morphology NORMAL Sodium 141 Potassium 4.6 Chloride 107 Carbon Dioxide 18 L Anion Gap 21 H BUN 15 Creatinine 0.79 Estim Creat Clear Calc 90.3 Estimated GFR > 60 Random Glucose 140 H Calcium 9.6 Total Bilirubin 0.3 Direct Bilirubin 0.1 AST 13 ALT 34 H Alkaline Phosphatase 70 Ammonia 36 Total Protein 6.8 Albumin 3.7 Stl C. cayetanensis PCR Not Detected Stool Rotavirus A PCR Not Detected Stl Adenov F 40/41 PCR Not Detected Stool Astrovirus (PCR) Not Detected Stool Campylobacter PCR Not Detected Stool Cryptosporidium PCR Not Detected Stl Sh Tox Pr E STEC PCR Not Detected Stool E coli O157 PCR Not applicable Stl Enterotoxigenic E PCR Not Detected Stool EPEC (PCR) Not Detected Stool EAEC (PCR) Not Detected Stl E. histolytica PCR Not Detected Stool Giardia Lamblia PCR Not Detected Stl P. shigelloides PCR Not Detected Stool Salmonella PCR Not Detected Stool Sapovirus (PCR) Not Detected Stl Shigella/EIEC PCR Not Detected St Y.enterocolitica PCR Not Detected Stool Vibrio (PCR) Not Detected Stl Vibrio cholerae PCR Not Detected Stl Norovirus GI/GII PCR Not Detected Valproic Acid 39.3 L DS: Summary Hospital Course Hospital Course: HPI: pt is a 47 yo female with hx of Bipolar disorder who presents following intentional overdose in suicide attempt requiring ICU admission at [facility] following aspiration pneumonia, now cleared, on PO antibiotics and transferred to [place] [id number]. Pt reports she was doing overall okay, though still with depression, until about 2 weeks ago. She remained taking medications regularly and does not know why she entered into an intense depression. Patient has been attending [facility] however found herself sleeping all day afterwards, feeling like a burden to others, becoming hopeless, having no motivation, not attending to ADLs, and experiencing increasingly extreme despair. Patient did not hear actual auditory hallucinations but started having paranoid delusional thoughts that everybody knew that she had a mental illness, including strangers in the community, people driving by; patient would overhear other people talking and misinterpret it, such as hearing a man yelling, thinking that he was yelling at her. Patient said she would have suicidal thoughts but tried to distract herself by doing yoga; she does not know why she did not tell staff at [facility] or her ... But also says I wanted a way out.. Patient went into the basement while her was upstairs; she poured out all her pills into a bowl and started just consuming. Her came downstairs, realized what she would done and drove her to [facility] where she received charcoal and had to get intubated, resulting in aspiration pneumonia. Patient reports that Depakote has helped in the past and she wants to continue on it; she has not sure about the effectiveness of her other medication. Patient says her last manic episode was probably around March during which time she was hypomanic, irritable. Patient denies any alcohol or drug use; denies any history of trauma. Patient is glad that she is alive. Formulation/clinical reasoning: Seems that Depakote and maybe Zyprexa helps prevent seda however do not seem to be treating her depression adequately (this past March 2023 she was restarted on Depakote and newly started on Zyprexa). Patient has had several past medication trials that have not worked. agreed to try Wellbutrin, (other options discussed were Vraylar, or possibly Lamictal).. Hospital course: 08/02 Patient reports that she has feeling a little better.? Not suicidal.? Tolerated Depakote last night.? Again discussed medication and patient agrees that Depakote and Zyprexa have prevented manic episodes and with Depakote on board she is open to starting Wellbutrin for help with depression.? Patient struggling some with being isolated in her room due to C diff precautions but tolerating it.? Asks when she thinks she will be able to discharge and agrees that safety plan needs to be better established since she did not reach out for help though help was available. -on both Depakote/Zyprexa patient's mood should be sufficiently stable to start low-dose Wellbutrin which has lowest risk of antidepressants of triggering seda. -patient currently being treated for aspiration pneumonia on Augmentin; she also developed C diff and was treated with vancomycin 08/03 feeling better overall; thinking more positively, no self-deprecating thoughts. Wellbutrin working; no paranoia -remain on unit to make sure patient not triggered into seda; need to check labs; otherwise plan on discharge sometime early next week; patient wants to go to partial -loose stool resolved 08/04 Patient reports her mood is good today. She is sleeping well. Patient had a good visit with her yesterday and he is coming in today. She is discussing with social work about aftercare and getting into a partial program, either returning to [place] or doing the partial at [place]. Patient and Team agree this step-down will be important part of her treatment plan. Patient had lab work today which is not back yet. -loose stool remains fully resolved Patient felt ready for discharge and back to her regular self. She reported that her mood was good and depression fully resolved, no SI at all and no self-deprecating thoughts. Patient, tolerating medications well; sleeping and eating well. Patient remained in good behavioral and impulse control throughout her time in the unit and was engaged in treatment, attending groups and forthcoming in 1 on 1 sessions. Patient got along well with peers and staff. Labs checked and although Depakote level subtherapeutic patient has remained without manic episodes on this dose in the past so will leave as is. Patient has a safety plan and is returning to live with her supportive who is getting a lock box for medications. Patient is also stepping down to partial program, returning to [facility]. Patient is ready to return to the community for treatment. She is not in imminent risk for harm to self or others and her request for discharge honored. Medications: Started Wellbutrin XL 150 mg Continue Depakote ER 1000mg Continue Zyprexa 15mg qhs Time spent discussing smoking cessation with patient: 3 to 10 minutes Status at Discharge Functional status at discharge: independent ambulation Overall status at discharge: patient is back to baseline Time Spent with Patient Time attestation: Total time managing care of this patient today _35___ minutes. Time spent: Greater than 30 minutes Discharge Plan Discharge Anticipated Discharge Date/Time: 08/10/23 11:30 Patient Disposition: Home, Self-Care Discharge Diagnosis: bipolar I disorder, rapid cycling, severe, most recently depressed, in full remission Referrals: Physician,Unknown J [Primary Care Provider] - 1 Week Discharge Medications: New lisinopril 10 mg Tablet 10 mg PO DAILY 30 Days Qty: 30 0RF Protocol: Hold for SBP< HOLD for SBP < : 90 bupropion HCl 150 mg Tablet Extended Release 24 Hr 150 mg PO DAILY 30 Days Qty: 30 1RF divalproex 500 mg Tablet Extended Release 24 Hr 1,000 mg PO BEDTIME 30 Days Qty: 60 1RF olanzapine 15 mg tablet 15 mg PO BEDTIME 30 Days Qty: 30 1RF trazodone 50 mg Tablet 50 mg PO BEDTIME PRN (Reason: Insomnia) 30 Days Qty: 30 1RF Artificial Tears([id number]) 1-0.2-0.2 % Drops 2 drp ophthalmic (eye) Q4H PRN (Reason: dry eyes) 30 Days Qty: 15 0RF vancomycin 125 mg Capsule 125 mg PO Q6H 2 Days Qty: 9 0RF Continued acetaminophen [Tylenol] 325 mg Tablet 975 mg PO Q6H PRN (Reason: Pain) lorazepam [Ativan] 0.5 mg Tablet 0.5 mg PO BID PRN (Reason: Anxiety) sennosides [senna] 8.6 mg Tablet 8.6 mg PO DAILY 30 Days Qty: 30 0RF melatonin 3 mg Tablet 6 mg PO BEDTIME PRN (Reason: Sleep) 30 Days Qty: 60 1RF hydroxyzine pamoate [Vistaril] 25 mg Capsule 25 mg PO TID PRN (Reason: Anxiety) 30 Days Qty: 60 1RF Discontinued artificial tears solution Drops 2 drp OPHTHALMIC (EYE) Q4-5H bisacodyl 10 mg Suppository 10 mg MD DAILY PRN (Reason: Anxiety) amoxicillin-pot clavulanate [Augmentin] 875-125 mg Tablet 1 tab PO BID enoxaparin [Lovenox] 40 mg/0.4 mL Syringe 40 mg SUBCUT DAILY dextrose [Glucose Gel] 40 % Gel 15 g PO Q20M PRN (Reason: Hypoglycemia) Rx Instructions: until symptoms of low blood sugar are controlled dextrose [Glucose Gel] 40 % Gel 30 g PO Q20M PRN (Reason: Hypoglycemia) Rx Instructions: until symptoms of low blood sugar are controlled Discharge Orders: Discharge Order (Routine); Ordered 08/10/23 Ordered By: Jonah Griggs Diet: Regular diet Activity on Discharge: As tolerated Stand Alone Forms: Patient Portal Discharge page Print Language: Portuguese Care Plan Goals: Maintain mood and safe behaviors Take medications as prescribed Practice coping skills Continue with outpatient providers and reach out to them as needed Health Concerns: Mood stability and behaviors Plan of Treatment: Follow up with your PCP, psychiatric provider and other outpatient providers regarding above concerns Take medications as prescribed Assessment: Risk assessment at time of discharge:? Patient was interviewed prior to discharge and found to be fully oriented and without any SI or HI. Patient has improved insight and judgment and wants to continue treatment. Patient is not in imminent risk of harm to self or others and has a safety plan that includes presenting to the closest ER or calling 911 if feeling unsafe.? Patient has been observed closely by nursing and unit staff throughout admission; patient has not engaged in any behaviors that suggest dangerousness to self or others and has demonstrated appropriate behaviors and impulse control
[2023-08-09 20:00] VITALS: BP 115/78; PULSE 116; RESP 20; TEMP 36.6; O2SAT 98
[2023-08-09] MEDS: Divalproex Sodium ER 500 MG TAB.ER.24H 1000 MG PO (21:00)
[2023-08-09] MEDS: traZODone HCL 50 MG TABLET PO (21:00)
[2023-08-09] MEDS: OLANZapine 7.5 MG TABLET 15 MG PO (21:00)
[2023-08-09] MEDS: Melatonin 3 MG TABLET 6 MG PO (21:01)
[2023-08-10] MEDS: vancomycin HCL 125 MG CAPSULE PO ×3 (00:23→11:34)
[2023-08-10 08:00] VITALS: BP 112/74; PULSE 106; RESP 18; TEMP 36.6; O2SAT 99
[2023-08-10] MEDS: lisinopriL 10 MG TABLET PO (08:52)
[2023-08-10] MEDS: buPROPion HCl XL 150 MG TAB.ER.24H PO (08:52)
--- NOTE | 2023-08-10 11:05 | MHC.SL.SWA ---
Speech Pathologist Impression: dysphonia and dysphagia secondary to intubation/extubation Risk of Aspiration Due to: History of Pneumonia Hx of Recent Extubation Weak Voice Dysphasia Diet Status: Downgrade solids Liquid Consistency and Strategies for Safe Swallow: Liquid Intake Recommendation: Dowell Thick Liquid Intake Strategies: Unrestricted Solid Food Consistency: Dietary Recommendations: CHOPPED/ADVANCED (NDD3) Oral Medication Intake: Crushed/Whole with Puree Please contact the pharmacy regarding appropriate crushable or liquid drug formulations that are available whenever modified delivery is recommended. Compensatory Strategies and Precautions to be Taken for Safe Swallow: Sitting Upright (90 deg) Small Bites and Sips Alternate Liquids/Solids Rate of Ingestion Change Supervision While Eating and Drinking for Safe Swallow: Intermittent Supervision Foods to Avoid: Swallowing Recommended Treatments: Compens. Strategy Educat. Vocal Cord Adduction Exer Recommendation for Speech: Outpatient Speech Therapy Inpatient Speech Therapy Modified Barium Swallow Study - Inpatient Modified Barium Swallow Study - Outpatient Comment: Patient continues to present w/ dysphagia and dysphonia likely secondary to intubation/extubation. Patient continues to demonstrate s/s aspiration w/ thin liquids. Education on diet recommendations and safe eating strategies discussed w/ patient. Recommend DOWNGRADE to CHOPPED/ADVANCED SOLIDS (NDD3) or SOFTER REGULAR solids (soften w/ sauce/gravy, cut into small pieces, etc.) based on patient's preference. Continue w/ NECTAR-THICK LIQUIDS d/t overt s/s aspiration w/ thin liquids. Recommend continued LINE PERSON tx at next level of care d/t dysphagia and dysphonia. Recommendations to discuss w/ PCP: (1) instrumental swallow study to rule in/out aspiration and make appropriate diet recommendations (i.e. Modified Barium Swallow Study/MBSS) (2) ENT consultation for dysphonia with hx recent extubation. Recommendations discussed w/ MD on floor. Scientific Research Associate Clinican/Clinical Fellow: No Supervisory Statement: I have reviewed and agree with the student/clinical fellow's documentation: N/A Speech Language Pathologist: Daquan Noguera M.A., [facility]-LINE PERSON
== END 2023-08-10 11:41 | disposition home or self-care (01) | DRG 885 ==
PROVIDERS: Physician Assistant; Admitting Provider Psychiatry & Neurology Psychiatry; Visit Provider Psychiatry & Neurology Psychiatry
DX: F31.9 Bipolar disorder, unspecified (principal); J69.0 Pneumonitis due to inhalation of food and vomit; A04.72 Enterocolitis due to Clostridium difficile, not specified as recurrent; I10 Essential (primary) hypertension; Z91.51 Personal history of suicidal behavior; Z79.899 Other long term (current) drug therapy
CPT/HCPCS: 36415; 80048; 80061; 80076; 80164; 82140; 83036; 85007; 85027; 87324; 87493; 87507; 92526; 92610

== ENCOUNTER → 2023-08-02 01:19 | Outpatient (BNV) | payer MEDICARE, SELFPAY | PROVIDERS: Admitting Provider Psychiatry & Neurology Psychiatry; Visit Provider Physician Assistant | DX: Z02.2 Encounter for examination for admission to residential institution (principal); T50.902A Poisoning by unspecified drugs, medicaments and biological substances, intentional self-harm, initial encounter | CPT/HCPCS: 99429 ==

== ENCOUNTER → 2023-08-02 01:19 | Outpatient (BNV) | payer MEDICARE, SELFPAY | PROVIDERS: Admitting Provider Psychiatry & Neurology Psychiatry; Visit Provider Psychiatry & Neurology Psychiatry | DX: F31.63 Bipolar disorder, current episode mixed, severe, without psychotic features (principal); J69.0 Pneumonitis due to inhalation of food and vomit | CPT/HCPCS: 90792; 99231; 99232; 99239 ==

== ENCOUNTER 2023-08-17 14:08 | Outpatient (REF) | payer MEDICARE, SELFPAY ==
--- NOTE | ~2023-08-17 | FL_ITS ---
EXAMINATION: Modified Barium Swallows CLINICAL INFORMATION: Dysphagia COMPARISON: None TECHNIQUE: Modified barium swallow was performed under lateral fluoroscopy with patient in standing position. Barium mixed with solids and liquids of different consistencies was administered by the speech pathologist. Examination was recorded in the fluoroscopy suite. FINDINGS: No laryngeal penetration or aspiration was observed during this examination.. FLUOROSCOPY TIME: 1 minute 18 seconds Number of Spot Images: N/A DOSE AREA PRODUCT: 367.8 uGy-m2 (microgray-meter squared) FL/FL barium swallow modified IMPRESSION: No laryngeal penetration or aspiration was observed during this examination.. Refer to the speech therapy report for further clarification This procedure was performed by Ger Law PA-C, and supervised by Dr. Resendiz
--- NOTE | 2023-08-18 11:52 | MHC.SL.IMP ---
Date of Plan of Treatment: 08/17/23 Onset of Symptoms/Illness: 07/19/23 Date Treatment Started: 08/17/23 Admitting Diagnosis: Dysphagia Primary Speech & Language Diagnosis: R13.10 Dysphagia Secondary Speech & Language Diagnosis: R49.0 Dysphonia Reason for Today's Visit: 82332 Modified Barium Swallow Study Pre-evaluation Dietary Consistencies: Regular Pre-evaluation Liquid Consistency: [place] Thick Pre-evaluation Medication Administration: Whole with Liquid Medical History: Modified Barium Swallow Study Fluoroscopic Evaluation of Swallowing Function CPT Code 05748 Evaluation Year: 2023 Reason for Study: Difficulty swallowing post-extubation Referring Physician: Jonah Griggs MD Evaluating Clinician: Ruthann Ko MA, CCC-[employer] CONSULTANT Study Number: 1 Patient Name: Samra Jain Status: Outpatient, Ambulatory Age: 48 Gender: Female Medical History HTN, bipolar 1 d/o, schizoaffective d/o Current (pre-evaluation) Intake/Diet: Route: PO Diet Grade: Regular Liquid Consistencies: [place] Thick Pain: None reported at time of study SUBJECTIVE: Patient is a 48 year old female with recent [place] [facility] for intentional overdose in a suicide attempt. She was transferred from [facility] after an ICU admission there with recent intubation. After being extubated, patient experienced changes to her swallow, with coughing and choking mainly on thin liquids. She was reportedly eating a pureed diet with nectar thick liquids at [facility]. Once transferred [place] [facility] she was upgraded to a regular texture diet, but continued on nectar thick liquids due to consistent coughing on thin liquids. She was discharged with the recommendation to continue thickening liquids at home and return for an outpatient MBSS to further evaluate the extent of her dysphagia. Patient reports that since then, she?s been thickening all her drinks, though she recently tried some water and drank half a glass without any coughing or choking. Oral Motor Exam Facial Symmetry: Symmetrical Mouth Occlusion: Normal Oral-Facial Teeth Characteristics: Intact/Normal Oral-Facial Lip Pucker Description: Normal Oral-Facial Smile (Lips) Description: Normal Oral-Facial Puff Cheeks Description: Normal Tongue Size: Normal Tongue Excursion Description: Normal Tongue Range of Movement Description: Normal Tongue Speed of Movement Description: Normal Tongue Strength of Movement (against opposing pressure): Normal Tongue Movement Characteristics: Normal/Absent Is patient able to manage secretions?: Yes Food and Liquid Trials: Oral Impairment: Lip Closure: Did not test Oral Impairment: Tongue Control During Bolus Hold: Did not test Oral Impairment: Bolus Preparation/Mastication: 0=Timely and efficient chewing and mashing Oral Impairment: Bolus Transport/Lingual Motion: 1= Delayed initiation of tongue motion Oral Impairment: Oral Residue: 1=Trace residue lining oral structures Oral Impairment:Initiation of Pharyngeal Swallow: 3=Bolus head in pyriforms Pharyngeal Impairment: Soft Palate Elevation: 0=No bolus between soft palate (SP)/pharyngeal wall (PW) Pharyngeal Impairment: Laryngeal Elevation: 0=Complete superior movement of thyroid cartilage (see description) Pharyngeal Impairment: Anterior Hyoid Excursion: 0=Complete anterior movement Pharyngeal Impairment: Epiglottic Movement: 1=Partial inversion Pharyngeal Impairment: Laryngeal Vestibular Closure:: 0=Complete: no air/contrast in laryngeal vestibule Pharyngeal Impairment: Pharyngeal Stripping Wave: 0=Present: complete Pharyngeal Impairment: Pharyngeal Contraction: Did not test Pharyngeal Impairment: Pharyngoesophageal Segment Openin=Complete distension and complete duration: no obstruction of flow Pharyngeal Impairment: Tongue Base (TB) Retraction: 1=Trace column of contrast/air between TB and posterior PW Pharyngeal Impairment: Pharyngeal Residue: 1=Trace residue within or on pharyngeal structures Pharyngeal Impairment: Esophageal Clearance Upright Position: Did not test Impressions and Recommendations Clinical Observations: OBJECTIVE: Time-out: performed at 15:00 Evaluation Start: 14:30; Stop: 14:40 Patient Positioning: Standing Viewing Planes: LATERAL ONLY Contrast: MBSImP? Standardized Protocol using commercially prepared, standardized Barium viscosities, including: Varibar? THIN LIQUID (40% w/v, <15 cps) , 1/2 Shortbread Cookie (1 x1 x.25 ) MBSImP ID: [id number] MBSImP Results: Lip closure for intraoral bolus containment could not be assessed due to logistical reasons not related to physiologic impairment. Tongue control during bolus hold could not be assessed due to logistical reasons not related to physiologic impairment. Bolus preparation and mastication resulted in timely and efficient chewing and mashing. Bolus transport/lingual motion demonstrated delayed initiation of tongue motion. Oral residue was a trace, lining oral structures. Initiation of the pharyngeal swallow occurred when the bolus head was in the pyriform sinuses. Soft palate elevation resulted in no bolus between the soft palate and the pharyngeal wall. Laryngeal elevation demonstrated complete superior movement of the thyroid cartilage with complete approximation of the arytenoids to the epiglottic petiole. Anterior hyoid excursion demonstrated complete anterior movement. Epiglottic movement resulted in partial inversion. Laryngeal vestibular closure was complete, as indicated by no air or contrast within the laryngeal vestibule at the height of the swallow. Pharyngeal stripping wave was present and complete. Pharyngeal contraction could not be determined due to logistical reasons not related to physiologic impairment. Pharyngoesophageal segment opening was completely distended for complete duration with no obstruction of bolus flow. Tongue base retraction allowed a trace column of contrast or air between the retracted tongue base and the posterior pharyngeal wall. Pharyngeal residue was a trace within or on pharyngeal structures. Esophageal clearance in the upright position could not be assessed due to logistical reasons not related to physiologic impairment. Oral Impairment Score: 4 (absence of score, component 1component 2) Pharyngeal Impairment Score: 1 (absence of score, component 13) Esophageal Impairment Score: --- (absence of score, component 17) Laryngeal Penetration and Aspiration: Neither penetration nor aspiration was observed in today's study with Thin. ASSESSMENT: Clinician Assessment: This exam was conducted by the radiologist and the speech pathologist. Patient was standing for lateral view and trialed thin (via cup sip, straw sip), puree, and regular solid textures. Note timely and efficient mastication pattern. Posterior lingual motion was mildly delayed in initiation, but with brisk lingual movement. Pharyngeal swallow trigger was also delayed, initiated as the bolus head reached the pyriform sinuses. Post-swallow, there was trace residue lining oral structures, which subsequently cleared. No evidence of nasopharyngeal reflux. Complete laryngeal elevation and complete laryngeal vestibular closure. Note partial epiglottic inversion. No evidence of aspiration or penetration with this exam. There was trace pooling in the valleculae and pyriform sinuses with liquids. Complete pharyngeal clearance with solid consistencies. Liquid Intake Recommendation: Thin Liquid Intake Strategies: Small Sips, Double Swallow Dietary Recommendations: Regular Medication Administration: Whole with Liquid Please contact the pharmacy regarding appropriate crushable or liquid drug formulations that are available whenever modified delivery is recommended. Compensatory Strategies Recommended: Sitting Upright (90 deg), Double Swallow, Small Bites and Sips, Alternate Liquids/Solids, Rate of Ingestion Change Supervision during eating and or drinking: None Needed Recommendation for Speech Therapy: NA:Typical Evaluation Text Comment: Intake Recommendations: Route: PO Diet Grade: Regular Liquid Consistencies: Thin Post-Study Functional Oral Intake Scale (FOIS): 7- Total oral intake with no restrictions This exam was mostly unremarkable. Note delayed swallow and minimal pooling of liquid in the valleculae and pyriform sinuses. No evidence of aspiration during this exam. Trace residuals, seen mostly with liquids, in the oral and pharyngeal cavities cleared with subsequent swallows. Recommend continue on regular texture diet, and UPGRADE to THIN liquids. [employer] CONSULTANT discussed with patient strategies to maximize safety: ensure upright position with PO intake, take small sips, one sip at a time, dry swallow between sips to clear any vallecular pooling. Further dysphagia treatment is not warranted at this time. Recommend patient continue monitoring her dysphagia. If there are any changes or worsening of symptoms, consult with PCP, at which point a re-evaluation may be warranted. Patient does present with changes to her voice post-extubation. She is recommended a referral to ENT to evaluate for possible vocal fold mobility issues and/or trauma. Once vocal folds have been visualized, she may additionally benefit from a voice evaluation with a speech-language pathologist. Suggested Referrals: The patient might benefit from a referral to: Otolaryngology Indication for Referral: ? vocal fold mobility issues post-extubation Therapy Recommendations: Therapy will be discontinued Prognosis for Improvement: The prognosis for the patient to meet nutritional needs by mouth is excellent based on degree of impairment. Clinician - Supplemental, Miscellaneous Communication: It is important to note MBSS objective studies are snapshots in time and Patient function might vary with factors such as time of day or concomitant medical conditions. For this reason, the final treatment plan for this patient should rest with their medical care team. Additional recommendations should be considered with the totality of the Patient in mind. Thank for the opportunity to participate in the care of this patient. If you have any questions about the content of this report, please contact the [facility] at [facility]. Education: Education regarding findings from today's study and plans for therapy were provided to Patient only through Verbal Instruction. Understanding was expressed by the Patient only. Mule Developer Clinician/Clinical Fellow: No Supervisory Statement: N/A Speech Language Pathologist: Ruthann Ko M.A., [facility]-[employer] CONSULTANT
== END 2023-08-17 14:09 | disposition home or self-care (01) ==
LOC: HO.XRAY 14:08
PROVIDERS: PCP Nurse Practitioner Family; Visit Provider Psychiatry & Neurology Psychiatry
DX: R13.10 Dysphagia, unspecified (principal)
CPT/HCPCS: 74230; 92611

== ENCOUNTER → 2023-08-17 14:30 | Outpatient (BNV) | payer MEDICARE, SELFPAY | PROVIDERS: PCP Nurse Practitioner Family; Visit Provider Physician Assistant Surgical | DX: R13.10 Dysphagia, unspecified (principal) | CPT/HCPCS: 74230 ==